=== PATIENT | male | born 1940 | race Caucasian/White ===

== ENCOUNTER → 2016-06-20 12:35 | Outpatient (CLI) | payer MEDICARE, OTHER ==
[2012-01-23 22:39] VITALS: BMI 25.3
== END | disposition home or self-care (01) ==
LOC: D.US 12:35
DX: I65.23 Occlusion and stenosis of bilateral carotid arteries (principal)

== ENCOUNTER 2017-03-06 08:56 | Outpatient (CLI) | payer MEDICARE, OTHER ==
--- NOTE | ~2017-03-06 | HEMODYNAMI ---
PATIENT:TASHA DE LA CRUZ MEDICAL RECORD: [id number] : 36 LOCATION:D.CAT ADMISSION DATE: 03/06/17 Generatedon:03/06/201711:33 Patient name: TASHA DE LA CRUZ Patient #: [id number] SSN: : 1940 Date of study: 03/06/2017 Page: Of Hemodynamic Procedure Report Patient Data Patient Demographics Procedure consent was obtained First Name: TASHA Gender: Male Last Name: DOROTHY : 1940 Middle Initial: R Age: 76 year(s) Patient #: [id number] Race: Unknown Additional ID: [id number] Contact details Address: [address] [place] [address] State: [place] City: [place] Zip code: [address] Past Medical History Allergies Allergen Reaction Date Comments Reported Other allergy 03/06/2017 HYDROCODONE Admission Admission Data Admission Date: 03/06/2017 Admission Time: 8:56 Procedure Procedure Types Cath Procedure Diagnostic Procedure LHC Coronaries only PCI Procedure Coronary Stent Initial x2 Miscellaneous Procedures Moderate Sedation up to 30 minutes Procedure Description Procedure Date Procedure Date: 03/06/2017 Procedure Start Time: 11:04 Procedure End Time: 11:33 Procedure Staff Name Function Hudson Kumar MD Performing Physician Marcio Fuentes RT Scrub Tavo Magana RN Nurse Jessica Bhat RT Monitor Procedure Data Cath Procedure Fluoroscopy Diagnostic fluoroscopy Total fluoroscopy Time: 800 time: 800 min min Diagnostic fluoroscopy Total fluoroscopy dose: dose: 10.8 mGy 10.8 mGy Contrast Material Contrast Material Type Amount (ml) Isovue 300 118 Entry Location Entry Primary Successful Side Size Upsize Upsize Entry Closure Succes sful Closure Location (Fr) 1 (Fr) 2 (Fr) Remarks Device Remarks Femoral Right 7 Fr Exoseal artery Short Estimated blood loss: 10 ml Procedure Complications No complications Procedure Medications Medication Administration Route Dosage 0.9% NaCl I.V. 100 ml/hr Oxygen NC 2 l/min Heparin Flush Bag added to field 2 bags (1000units/500ml NS) Lidocaine 2% added to field 20 Versed I.V. 1 mg Fentanyl I.V. 25 mcg Fentanyl I.V. 25 mcg Heparin Bolus I.V. 4000 units Fentanyl I.V. 50 mcg Hemodynamics Rest Heart Rate: 74 (bpm) Snapshots Pre Cath Intra NCS Post Cath Vital Signs Time Heart Resp SPO2 etCO2 [id number] NIBP (mmHg) Rhythm Pain Sedation Rate (ipm) (%) (mmHg) (mmHg) Status Level (bpm) 10:52:29 65 16 100 0 0 157/75(133) NSR 0 (11) 10(A) , No pain 10:57:07 52 14 100 0 0 142/65(118) NSR 0 (11) 10(A) , No pain 11:01:50 48 14 100 0 0 114/54(93) NSR 0 (11) 10(A) , No pain 11:06:24 48 15 100 0 0 116/59(90) NSR 0 (11) 10(A) , No pain 11:11:01 49 19 99 0 0 109/50(85) NSR 0 (11) 10(A) , No pain 11:15:35 50 15 100 0 0 105/51(82) NSR 0 (11) 9(A) , No pain 11:20:08 46 14 100 0 0 106/54(91) NSR 0 (11) 9(A) , No pain 11:24:42 45 13 100 0 0 118/54(93) NSR 0 (11) 9(A) , No pain 11:29:17 49 10 100 0 0 127/62(100) NSR 0 (11) 10(A) , No pain Medications Time Medication Route Dose Verified Delivered Reason Notes Effectiveness by by 10:53:43 0.9% NaCl I.V. 100 Tavo Tavo Per physician ml/hr Izzy Magana RN RN 10:53:56 Oxygen NC 2 Tavo Tavo Per physician l/min Izzy Magana RN RN 10:54:40 Heparin Flush added 2 Tavo Tavo used for Bag to bags Izzy Magana procedure (1000units/500ml field RN RN NS) 10:54:56 Lidocaine 2% added 20ml Tavo Tavo for local to vial Lorigan Sirenaigan anesthetic field JACK RN 10:59:59 Versed I.V. 1 mg Tavo Tavo for sedation Izzy Magana RN RN 11:00:11 Fentanyl I.V. 25 Tavo Tavo for sedation mcg Izzy Magana RN RN 11:05:25 Fentanyl I.V. 25 Tavo Tavo for sedation mcg Izzy Magana RN RN 11:08:18 Heparin Bolus I.V. 4000 Tavo Tavo for units Izzy cheema RN RN 11:29:59 Fentanyl I.V. 50 Tavo Tavo for sedation mcg Izzy Magana RN tin flipper Log Time Note 10:29:29 Marcio Fuentes RT(R) sent for patient. Start room use. 10:29:30 Time tracking: Regular hours 10:29:36 Plan of Care:Hemodynamics will remain stable., Cardiac rhythm will remain stable., Comfort level will be maintained., Respiratory function will remain adequate., Patient/ family verbilizes understanding of procedure., Procedure tolerated without complication., Recovers from procedure without complications.. 10:40:49 Patient received from Pre/Post Procedure Room to CCL 1 Alert and oriented. Tansferred to table in Supine position. 10:40:50 Warm blankets applied, and kelli hugger turned on for patient comfort. 10:40:51 Correct patient and procedure confirmed by team. 10:40:52 Signed procedure consent form obtained from patient. 10:40:54 ECG and BP/O2 sat monitors applied to patient. 10:41:01 Full Disclosure recording started 10:46:01 H&P Date Dictated: 03/01/2017 Within 30 days and on chart., H&P Addendum completed by physician on day of procedure. (MUST COMPLETE FOR ALL OUTPATIENTS). 10:51:33 Vital chart was started 10:53:43 0.9% NaCl 100 ml/hr I.V. was administered by Tavo Magana RN; Per physician; 10:53:56 Oxygen 2 l/min NC was administered by Tavo Magana RN; Per physician; 10:54:40 Heparin Flush Bag (1000units/500ml NS) 2 bags added to field was administered by Tavo Magana RN; used for procedure; 10:54:55 Baseline sample Acquired. 10:54:56 Lidocaine 2% 20ml vial added to field was administered by Tavo Magana RN; for local anesthetic; 10:55:02 Rhythm: sinus bradycardia 10:55:05 Pre-procedure instructions explained to patient. 10:55:05 Pre-op teaching completed and patient verbalized understanding. 10:55:08 Family in patients room. 10:55:10 Patient NPO since Midnight. 10:55:24 Patient allergic to Other allergyHYDROCODONE 10:55:26 Is the patient allergic to Iodine/contrast media? No. 10:55:28 Is patient on blood thinner?Yes 10:55:30 ACC The patient was administered the following blood thiners within the last 24 hours: ACCPlavix 10:55:32 Patient diabetic? Yes. 10:55:38 If diabetic: On Metformin? No 10:55:42 Previous problem with sedation/anesthesia? No ? 10:55:46 Snore? No 10:55:48 Sleep apnea? No 10:55:49 Deviated septum? No 10:55:49 Opens mouth fully? Yes 10:55:50 Sticks out tongue? Yes 10:55:52 Airway obstruction? No ? 10:55:54 Dentures? No ? 10:55:57 Pre procedure: right dorsailis pedis pulse 2+ Normal; easily identifiable; not easily obliterated 10:55:58 Patient pain scale 0/10 ?. 10:56:05 IV patent on arrival in right forearm with 0.9% NaCl at [facility]. 10:56:15 Lab results completed and on chart. 10:56:18 Right groin area was prepped with chlora-prep and draped in sterile fashion 10:56:19 Alarms reviewed by R. N. 10:56:19 Sharps counted by scrub and verified by R.N. 10:57:54 Use device set Femoral PCI 10:57:55 Acist Syringe opened to sterile field. 10:57:55 Acist Hand Control opened to sterile field. 10:57:56 Bag Decanter opened to sterile field. 10:57:56 Medline Cath Pack opened to sterile field. 10:57:57 St Karl 260cm J .035 wire opened to sterile field. 10:57:58 Merit BasixCompak Inflation Kit opened to sterile field. 10:57:59 Acist Manifold opened to sterile field. 10:57:59 Tegaderm 4 x 4 opened to sterile field. 10:58:06 [place] Sci Choice PT Extra Support J 300cm .014 gu opened to sterile field. 10:58:32 Terumo 7Fr [place] Sheath opened to sterile field. 10:58:49 Final Timeout: patient, procedure, and site verified with staff and physician. All members of the team are in agreement. 10:58:56 Right groin site verified by team. 10:59:01 Physical assessment completed. ASA score P 3 - A patient with severe systemic disease as per Hudson Kumar MD. 10:59:11 Sedation plan: IV Moderate Sedation Versed, Fentanyl 10:59:59 Versed 1 mg I.V. was administered by Tavo Magana RN; for sedation; 11:00:11 Fentanyl 25 mcg I.V. was administered by Tavo Magana RN; for sedation; 11:03:18 Procedure started. 11:04:42 Local anesthetic to right femoral artery with Lidocaine 2% by Hudson Kumar MD.INITIAL ACCESS ONLY 11:05:25 Fentanyl 25 mcg I.V. was administered by Tavo Magana RN; for sedation; 11:05:57 A 7 Fr Short sheath was inserted into the Right Femoral artery 11:06:06 Qudinitronic Launcher 7Fr EBU 3.5 SH guide catheter opened to sterile field. 11:06:19 7 Fr EBU 3.5 SH guide catheter was inserted over the wire 11:08:18 Heparin Bolus 4000 units I.V. was administered by Tavo Magana RN; for anticoagulation; 11:09:28 CHOICE PT ES wire advanced. 11:10:24 Inflation number: 1 A [place] Sci [place] 1.5 X 20 balloon was prepped and advanced across the Prox CX, then inflated to 21 FLORECITA for 0:13 (min:sec). 11:10:56 Balloon removed over the wire. 11:13:10 Inflation number: 2 A Euphora 2.0 x 15 Balloon was prepped and advanced across the Prox CX, then inflated to 3 FLORECITA for 0:13 (min:sec). 11:13:59 Balloon removed over the wire. 11:17:22 The [place] OTW 2.25 x 12 stent was advanced then removed because of failure to cross lesion 11:18:18 Inflation number: 3 A Euphora 2.5 x 12 Balloon was prepped and advanced across the Prox CX, then inflated to 17 FLORECITA for 0:09 (min:sec). 11:18:28 Balloon removed over the wire. 11::19 Inflation Number: 4 A Juan OTW 2.25 x 12 stent was prepped and advanced across the Prox CX. The stent was deployed at 17 FLORECITA for 0:07 (min:sec). 11:21:43 Wire redirected to LAD. 11::27 Inflation number: 1 The stent balloon was then re-inflated across the Prox LAD to 19 FLORECITA for 0:06 (min:sec). 11::52 Stent catheter was removed intact over wire. 11:25:33 Inflation Number: 2 A [place] OTW 2.5 x 12 stent was prepped and advanced across the Prox LAD. The stent was deployed at 11 FLORECITA for 0:06 (min:sec). 11:26:01 Stent catheter was removed intact over wire. 11:26:01 Wire removed. 11:26:02 Guide catheter removed. 11::28 6 Fr HS II SH guide catheter was inserted over the wire 11::33 RCA angiography performed. 11::55 Guide catheter removed. 11:28:05 Sheath removed intact; hemostasis achieved with Exoseal to the Right Femoral artery. 11:28:18 Procedure ended.(Physican Out) ::28 Fluoroscopy time 800.00 minutes. ::32 Flurop Dose total: 10.8 ::32 Fluoroscopy dose: 10.8 mGy 11::38 Contrast amount:Isovue 300 118ml. 11::42 Sharps counted by scrub and verified by R.N. 11::44 Insertion/operative site no bleeding no hematoma. 11::47 Post-op/insertion site Right Femoral artery dressed using a 4 x 4 and Tegaderm. 11:28:51 Post right femoral artery:stable, clean and dry 11::52 Post Procedure Pulses reassessed and unchanged 11::56 Post-procedure physical assessment completed. ASA score P 2 - A patient with mild systemic disease as per Hudson Kumar MD. 11:29:00 Post procedure rhythm: unchanged. 11:29:02 Estimated blood loss: 10 ml 11:29:04 Post procedure instruction explained to patient.Patient verbalizes understanding. 11:29:04 Patient needs reinforcement of post procedure teaching. ::22 Procedure type changed to Cath procedure, Diagnostic procedure, LHC, Coronaries only, PCI procedure, Coronary Stent Initial x2, Miscellaneous Procedures, Moderate Sedation up to 30 minutes 11:29:29 Procedure Complication : No complications 11:29:31 See physician's report for complete and final results. 11:29:59 Fentanyl 50 mcg I.V. was administered by Tavo Magana RN; for sedation; 11:31:03 Cordis 7Fr Exoseal opened to sterile field. 11:32:00 Medtronic Launcher 6Fr HS II SH guide catheter opened to sterile field. 11:32:55 Procedure and supply charges have been captured, reviewed, submitted and are correct. 11:33:04 Vital chart was stopped 11:33:07 Report given to Pre/Post Procedure Room. 11:33:17 Patient transfered to Pre/Post Procedure Room with Stretcher. 11:33:23 Procedure ended. 11:33:23 Full Disclosure recording stopped 11:33:29 End room use (Document Last) Intervention Summary Intervention Notes Time ActionType Lesion and Equipment Action# Pressure Duration Attributes Used 11:10:24 Inflate Prox CX [place] 1 21 00:13 balloon Sci [place]lin 1.5 X 20 balloon 11:13:10 Inflate Prox CX Euphora 2 3 00:13 balloon 2.0 x 15 Balloon 11:17:22 Discard [place] OTW Stent 2.25 x 12 stent 11:18:18 Inflate Prox CX Euphora 3 17 00:10 balloon 2.5 x 12 Balloon 11:21:19 Place stent Prox CX Juan OTW 4 17 00:07 2.25 x 12 stent 11:22:27 Reinflate Prox LAD [place] OTW 1 19 00:06 stent 2.25 x 12 balloon stent 11:25:33 Place stent Prox LAD Juan OTW 2 11 00:06 2.5 x 12 stent Device Usage Item Name Manufacture Quantity Catalog Number Hospital Part Current Mini mal Lot# / Charge Number Stock Stock Serial# Code Acist Acist 1 [id number] 967150 083623 067202 20 Syringe Medical Systems Inc Acist Hand Acist 1 50329 843081 411984 116097 5 Control Medical Systems Inc Bag Microtek 1 2001S 058956 50488 678497 5 SCHEDit. Medline Cardinal 1 [id number] 975658 [address] Karl St Karl 1 833797 357996 648225 167671 30 260cm J .035 wire Merit Merit 1 [id number] 677532 463085 215083 15 LUVHAN Medical Inflation Kit Acist Acist 1 13579 075337 253625 794261 5 Wanelo Medical [employer] Inc Tegaderm 4 3M 1 1626W 250140 882400 387633 5 x 4 [place] Sci Hollsopple 1 [id number] 698152 027343 026193 5 Choice PT Scientific Extra Support J 300cm .014 gu Terumo 7Fr Terumo 1 [id number] 938369 282904 962239 5 [place] Sheath Medtronic Medtronic 1 [id number] 177797 557835 433566 0 Launcher 7Fr EBU 3.5 SH guide catheter [place] Sci Hollsopple 1 [id number] 168975 356467 741005 1 [id number] Wavesat 1.5 X 20 balloon Euphora 2.0 Medtronic 1 [id number] 339455 091210 564716 5 [id number] x 15 Balloon Juan OTW Medtronic 1 [id number] 544998 93895 791012 5 [id number] 2.25 x 12 stent Euphora 2.5 Medtronic 1 [id number] 650358 965097 062000 5 [id number] x 12 Balloon [place] OTW Medtronic 1 [id number] 117425 21177 488074 5 [id number] 2.5 x 12 stent Cordis 7Fr Cardinal 1 [id number] 209205 643076 602807 5 [facility] Medtronic Medtronic 1 [id number] 316090 96464 125558 1 Launcher 6Fr HS II SH guide catheter Signature Audit [place] Stage Time Signature Unsigned Intra-Procedure 03/06/2017 Jessica 11:33:39 AM Counts RT(R) Signatures Monitor : Jessica Signature : Counts RT Date : Time : [place] [address] [facility] [place] [address]
[2017-03-06] MEDS ORDERED: MEGACE40 MG PO (09:15)
[2017-03-06] MEDS ORDERED: CORDARONE200 MG PO (09:15)
[2017-03-06] MEDS ORDERED: COUMADIN3 MG PO (09:15)
[2017-03-06] MEDS ORDERED: RENVELA800 MG PO (09:16)
[2017-03-06] MEDS ORDERED: DEXILANT60 MG PO (09:16)
[2017-03-06] MEDS ORDERED: TOPROL XL25 MG PO (09:16)
[2017-03-06] MEDS ORDERED: TYLENOL W/CODEI1 TAB PO (09:17)
[2017-03-06] MEDS ORDERED: NEPHRO-VITE RX1 TAB PO (09:17)
[2017-03-06] MEDS ORDERED: ZOCOR20 MG PO (09:18)
[2017-03-06] MEDS ORDERED: PLAVIX75 MG PO (09:19)
[2017-03-06 09:26] VITALS: BP 145/58; BMI 19.2
[2017-03-06 10:06] LABS: BASOPHILS 0.2 % (0-2); EOSINOPHILS 2.2 % (0-7); HEMATOCRIT 34.4 % (42.0-54.0); HEMOGLOBIN 11.1 g/dL (13.5-17.5); IMMATURE GRANULOCYTES 0.2 % (0-5); LYMPHOCYTES 20.2 % (15-50); MCH 31.9 pg (26.0-34.0); MCHC 32.3 g/dL (31.0-37.0); MCV 98.9 fL (80.0-100.0); MEAN PLATELET VOLUME 9.7 fL (7.4-10.4); MONOCYTES 4.4 % (2-11); NEUTROPHILS 72.8 % (40-80); PLATELET COUNT 147 10x3/uL (130-400); RBC 3.48 10x6/uL (4.20-6.10); RDW 15.5 % (11.5-14.5); WBC 8.7 10x3/uL (4.8-10.8)
[2017-03-06 10:11] LABS: ANION GAP 13.3 mmol/L (8-16); CALCIUM 9.3 mg/dL (8.5-10.1); CARBON DIOXIDE 30.6 mmol/L (21.0-32.0); CREATININE - SERUM 6.4 mg/dL (0.6-1.3); POTASSIUM - SERUM 3.9 mmol/L (3.5-5.1)
[2017-03-06 11:00] LABS: INR 1.15 (0.85-1.17); PROTIME 14.5 SECONDS (11.6-15.0)
--- NOTE | 2017-03-06 11:45 | NUR ---
1145 RECIEVED TO ROOM VIA STRETCHER FROM TEMPLATE CLERK WITH REPORTS OF 2 STENTS ONE TO THE CIRC AND ONE TO THE LAD. 7 FR EXOSEAL R/GROIN CDI NO BLEEDING NO HEMATOMA NOTED. INSTRUCTED PATIENT TO KEEP HEAD FLAT ON PILLOW WITH RLE STRAIGHT. 1200 VSS WITH CHEST PAIN DENIED. DR HANSON AT BEDSIDE TALKING TO PATIENT AND . PATIENT WILL RETURN ON MONDAY FOR INTERVENTION TO THE RCA. 1215 RESTING QUIETLY NO DISTRESS NOTED VSS
--- NOTE | 2017-03-06 12:41 | NUR ---
R/GROIN CDI NO BLEEDING NO HEMATOMA NOTED PULSES PALPABLE. VSS WITH CHEST PAIN DENIED
--- NOTE | 2017-03-06 12:47 | NUR ---
TR BAND REMOVED WITH DRESSING APPLIED NO BLEEDING NO HEMATOMA NOTED. VERBAL AND WRITTEN DISCHARGE GONE OVER WITH PATIENT AND BOTH VERBALIZED UNDERSTANDING. LEFT VIA WC TO PARKING FOR TRANSPORT HOME WITH CHEST PAIN DENIED
--- NOTE | 2017-03-06 12:58 | NUR ---
VSS WITH CHEST PAIN DENIED SANDWICH AND JUICE TO BEDSIDE WITH TO ASSIST. NO DISTRESS NOTED. 7 FR EXOSEAL R/GROIN CDI
--- NOTE | 2017-03-06 13:19 | NUR ---
RESTING QUIETLY WITH FAMILY AT SIDE 7 FR EXOSEAL R/GROIN CDI NO BLEEDING NO HEMATOMA NOTED VSS
--- NOTE | 2017-03-06 13:49 | NUR ---
NO CHANGE IN ASSESSMENT PATIENT CONTINUES TO SLEEP WITH NO DISTRESS
--- NOTE | 2017-03-06 14:22 | NUR ---
7 FR EXOSEAL R/GROIN CDI NO BLEEDING NO HEMATOMA NOTED. CHEST PAIN IS DENIED. VSS AND FAMILY AT SIDE
--- NOTE | 2017-03-06 15:04 | NUR ---
REPOSITIONED TO SITTING WITH HOB UP 30 DEGREES. 7 FR EXOSEAL R/GROIN REMAINS CDI NO HEMATOMA NOTED. CHEST PAIN IS DENIED
--- NOTE | 2017-03-06 15:18 | NUR ---
PIV REMOVED WITH DRESSING APPLIED VERBAL DISCHARGE INSTRUCTIONS GONE OVER WITH AND PATIENT UP TO GET DRESSED WITH 7 FR EXOSEAL R/GROIN CDI NO BLEEDING NO HEMATOMA NOTED.
--- NOTE | 2017-03-06 15:44 | NUR ---
VERBAL AND WRITTEN DISCHARGE GONE OVER WITH PATIENT AND . 7 FR EXOSEAL R/GROIN CDI NO BLEEDING NO HEMATOMA NOTED. PATIENT TRANSPORTED VIA WC TO PARKING FOR TO DRIVE HOME NO DISTRESS NO CHEST PAIN
--- NOTE | 2017-03-24 16:56 | OP ---
PATIENT NAME: TASHA DE LA CRUZ MEDICAL RECORD: [id number] :36 LOCATION:D.CAT ADMISSION DATE: SURGEON: CARLOTA HANSON MD DATE OF OPERATION: 03/06/2017 PROCEDURES: 1. PTCA stent to LAD. 2. PTCA stent to the left circumflex. 3. Selective coronary angiography. INDICATION: Angina and coronary artery disease. PROCEDURE IN DETAIL: After informed consent was obtained and after detailed explanation of risks, benefits as well as alternative therapies, the patient elected to proceed with angiogram and angioplasty. The right femoral area was prepped and draped in normal sterile fashion. The right femoral artery was cannulated via modified Seldinger technique with placement of a 7-Kyrgyz sheath. All catheters were exchanged through this sheath. FINDINGS: The left anterior descending has 80% stenosis at the proximal aspect of the left circumflex with a 99% stenosis. The left circumflex was addressed with a 2.25 x 12 mm [place], the LAD with a 2.5 x 12 mm Juan. Result was 0% residual stenosis. OVERALL IMPRESSION: Successful percutaneous transluminal coronary angioplasty stent of the left anterior descending and left circumflex going from 80-99% initial stenosis to 0% residual stenosis. TRANSINT:[id number] Voice Confirmation ID: [id number] DOCUMENT ID: [id number] CARLOTA HANSON MD at 1656 CC: [id number] DICTATION DATE: 03/06/17 1132 TRIMMING DEPARTMENT BLOCKER: 03/06/17 1258 DEP CLI 03/06/17 [place] [id number] [place] [address]
[2017-07-07] MEDS ORDERED: LANOXIN125 MCG PO (08:49)
[2017-07-07] MEDS ORDERED: RENA-VITE TABL0.8 MG PO (08:50)
[2017-07-07] MEDS ORDERED: RENVELA800 MG PO (08:50)
[2017-07-07] MEDS ORDERED: BAYER CHEWABLE81 MG PO (08:51)
[2017-07-07] MEDS ORDERED: SENSIPAR30 MG PO (08:52)
[2017-07-07] MEDS ORDERED: PLAVIX75 MG PO (10:51)
== END 2017-03-06 15:46 ==
LOC: D.CATH 08:56
PROVIDERS: Internal Medicine Interventional Cardiology
DX: I25.119 Atherosclerotic heart disease of native coronary artery with unspecified angina pectoris (principal); Z01.812 Encounter for preprocedural laboratory examination

== ENCOUNTER → 2017-03-10 08:57 | Outpatient (CLI) | payer MEDICARE, OTHER ==
--- NOTE | ~2017-03-10 | HEMODYNAMI ---
PATIENT:TASHA DE LA CRUZ MEDICAL RECORD: [id number] : 36 LOCATION:D.CAT ADMISSION DATE: 03/10/17 Generatedon:03/10/201713:31 Patient name: TASHA DE LA CRUZ Patient #: [id number] SSN: : 1940 Date of study: 03/10/2017 Page: Of Hemodynamic Procedure Report Patient Data Patient Demographics Procedure consent was obtained First Name: TASHA Gender: Male Last Name: DOROTHY : 1940 [facility] Initial: R Age: 76 year(s) Patient #: [id number] Race: Additional ID: [id number] Contact details [address]: [address] [place] [address] State: [place] City: [place] Zip code: [address] Past Medical History Allergies Allergen Reaction Date Comments Reported Other allergy 03/06/2017 HYDROCODONE Other allergy 03/10/2017 Hydrocodone Admission Admission Data Admission Date: 03/10/2017 Admission Time: 8:57 Lab Results Lab Result Date: 03/10/2017 Lab Result Time: 0:00 Biochemistry Name Units Result Min Max BUN mg/dl 25 --(----)-* 7 18 Creatinine mg/dl 4.9 --(----)-* 0.6 1.3 CBC Name Units Result Min Max Hemoglobin g/dl 11.2 *-(----)-- 13.5 17.5 Procedure Procedure Types Cath Procedure PCI Procedure Coronary Atherectomy Atherectomy w/Stent Coronary Initial Miscellaneous Procedures Moderate Sedation up to 30 minutes Moderate Sedation up to 45 minutes Procedure Description Procedure Date Procedure Date: 03/10/2017 Procedure Start Time: 12:28 Procedure End Time: 13:30 Procedure Staff Name Function Mikel Jasso RT Scrub Hudson Kumar MD Performing Physician Mar Goyal RT Scrub Giovani French RT Monitor Samiar Marin RN Nurse Procedure Data Cath Procedure Fluoroscopy Diagnostic fluoroscopy Total fluoroscopy Time: time: 25.7 min 25.7 min Diagnostic fluoroscopy Total fluoroscopy dose: dose: 1131 mGy 1131 mGy Contrast Material Contrast Material Type Amount (ml) Isovue 300 147 Entry Location Entry Primary Successful Side Size Upsize Upsize Entry Closure Membreno ccessful Closure Location (Fr) 1 (Fr) 2 (Fr) Remarks Device Remarks Femoral Right 7 Fr Exoseal artery Short Femoral Right 7 Fr Manual vein Short Compression Estimated blood loss: 10 ml Procedure Complications No complications Procedure Medications Medication Administration Route Dosage Oxygen NC 2 l/min Lidocaine 2% added to field 20 Heparin Flush Bag added to field 2 bags (1000units/500ml NS) 0.9% NaCl I.V. 50 ml/hr Versed I.V. 1 mg Fentanyl I.V. 50 mcg Versed I.V. 1 mg Fentanyl I.V. 50 mcg Heparin Bolus I.V. 5000 units 0.9% NaCl I.V. bolus 500 ml Fentanyl I.V. 50 mcg Fentanyl I.V. 50 mcg Heparin Bolus I.V. 3000 units Hemodynamics Rest HGB: 11.2 (g/dl) Heart Rate: 48 (bpm) Snapshots Pre Cath Intra NCS Post Cath Vital Signs Time Heart Resp SPO2 etCO2 NIBP (mmHg) Rhythm Pain Sedation Rate (ipm) (%) (mmHg) Status Level (bpm) 12:20:03 52 25 100 0 128/62(105) NSR 0 (11) 10(A) , No pain 12:24:45 49 18 100 0 126/56(103) NSR 0 (11) 10(A) , No pain 12:29:21 48 16 100 0 107/51(77) NSR 0 (11) 10(A) , No pain 12:33:58 53 17 99 0 99/50(78) NSR 0 (11) 9(A) , No pain 12:38:35 63 17 100 0 85/42(61) NSR 0 (11) 9(A) , No pain 12:43:07 68 15 99 0 87/49(68) NSR 0 (11) 9(A) , No pain 12:47:39 59 16 100 0 96/50(72) NSR 0 (11) 9(A) , No pain 12:52:12 80 15 100 0 107/61(84) NSR 0 (11) 9(A) , No pain 12:56:46 70 14 100 0 115/61(93) NSR 0 (11) 9(A) , No pain 13:01:23 70 14 100 0 119/64(93) NSR 0 (11) 9(A) , No pain 13:06:01 70 14 100 0 118/63(95) NSR 0 (11) 9(A) , No pain 13:10:38 70 16 100 0 119/67(95) NSR 0 (11) 10(A) , No pain 13:15:17 68 16 100 0 127/60(104) NSR 0 (11) 10(A) , No pain 13:19:57 56 14 100 0 123/60(98) NSR 0 (11) 10(A) , No pain 13:24:38 56 14 100 0 123/55(100) NSR 0 (11) 10(A) , No pain 13:29:16 49 15 100 0 126/55(105) NSR 0 (11) 10(A) , No pain Medications Time Medication Route Dose Verified Delivered Reason Notes Effectiveness by by 12:17:47 Oxygen NC 2 Hudson Hudson used for l/min José Kumar MD procedure 12:24:31 Lidocaine 2% added 20ml Hudson Hudson for local to vial José Kumar MD anesthetic field 12:24:39 Heparin Flush added 2 Hudson Hudson used for Bag to bags José Kumar MD procedure (1000units/500ml field NS) 12:25:25 0.9% NaCl I.V. 50 Hudson Buffie Per physician ml/hr José Marin RN 12:25:48 Versed I.V. 1 mg Hudson Buffie for sedation José Marin RN 12:25:55 Fentanyl I.V. 50 Hudson Buffie for sedation mcg José Marin RN 12:29:35 Versed I.V. 1 mg Hudson Buffie for sedation José Marin RN 12:29:39 Fentanyl I.V. 50 Hudson Buffie for sedation mcg José Marin RN 12:36:18 Heparin Bolus I.V. 5000 Hudson Buffie for verifi ed units José Marin RN anticoagulation with dr kumar 12:41:01 0.9% NaCl I.V. 500 Hudson Buffie Per physician bolus ml José Marin RN 12:54:33 Fentanyl I.V. 50 Hudson Hogan for sedation mcg José Marin RN 13:03:29 Fentanyl I.V. 50 Hudson Hogan for sedation mcg José Marin RN 13:05:06 Heparin Bolus I.V. 3000 Hudson Hogan for verifi ed units José Marin RN anticoagulation with dr kumar Procedure Log Time Note 11:43:46 Time tracking: Regular hours 11:43:46 Mikel Jasso RT(R) sent for patient. Start room use. 11:43:51 Plan of Care:Hemodynamics will remain stable., Cardiac rhythm will remain stable., Comfort level will be maintained., Respiratory function will remain adequate., Patient/ family verbilizes understanding of procedure., Procedure tolerated without complication., Recovers from procedure without complications.. 12:00:32 Informed consent obtained and on chart 12:00:38 PCI Cath Status : Elective 12:09:37 Patient received from Pre/Post Procedure Room to CCL 1 Alert and oriented. Tansferred to table in Supine position. 12:09:42 Warm blankets applied, and kelli hugger turned on for patient comfort. 12:09:43 Correct patient and procedure confirmed by team. 12:09:46 ECG and BP/O2 sat monitors applied to patient. 12:13:20 H&P Date Dictated: 03/10/2017 New H&P dictated by physician.. 12:13:25 Pre-procedure instructions explained to patient. 12:13:26 Pre-op teaching completed and patient verbalized understanding. 12:13:29 Family in waiting room. 12:13:37 Patient NPO since Midnight. 12:14:17 Patient allergic to Other allergyHydrocodone 12:14:30 ----Pre-sedation anethsthesia assessment.---- 12:14:33 Previous problem with sedation/anesthesia? No ? 12:15:53 Lab Result : BUN 25 mg/dl 12:15:53 Lab Result : Hemoglobin 11.2 g/dl 12:15:53 Lab Result : Creatinine 4.9 mg/dl 12:16:17 IV patent on arrival in right wrist with 0.9% NaCl at [facility] [employer] [facility]. 12:16:19 Snore? Yes 12:16:21 Sleep apnea? No 12:16:22 Deviated septum? No 12:16:23 Opens mouth fully? Yes 12:16:24 Sticks out tongue? Yes 12:16:27 Airway obstruction? No ? 12:16:43 Dentures? Yes IN TIGHT 12:16:49 Is the patient allergic to Iodine/contrast media? No. 12:16:51 Is patient on blood thinner?Yes 12:16:55 ACC The patient was administered the following blood thiners within the last 24 hours: ACCPlavix 12:17:05 Patient diabetic? Yes. 12:17:47 Oxygen 2 l/min NC was administered by Hudson Kumar MD; used for procedure; 12:18:10 Pre procedure: right dorsailis pedis pulse Doppler 12:18:16 Patient pain scale 0/10 ?. 12:18:23 Lab results completed and on chart. 12:18:31 If diabetic: On Metformin? No 12:18:50 Right groin area was prepped with chlora-prep and draped in sterile fashion 12:18:54 Alarms reviewed by R. N. 12:18:54 Sharps counted by scrub and verified by R.N. 12:19:00 Vital chart was started 12:19:03 Baseline sample Acquired. 12:19:14 Rhythm: sinus bradycardia 12:19:25 Full Disclosure recording started 12:19:49 Use device set Femoral PCI 12:19:50 Acist Syringe opened to sterile field. 12:19:52 Acist Hand Control opened to sterile field. 12:19:52 Bag Decanter opened to sterile field. 12:19:53 Medline Cath Pack opened to sterile field. 12:19:56 St Karl 260cm J .035 wire opened to sterile field. 12:19:57 Merit BasixCompak Inflation Kit opened to sterile field. 12:19:58 Acist Manifold opened to sterile field. 12:19:59 Tegaderm 4 x 4 opened to sterile field. 12:20:13 Terumo 7Fr Spur Sheath opened to sterile field. 12:20:14 Terumo 7Fr Spur Sheath opened to sterile field. 12:20:52 5Fr J Tip Temporary Pacing Catheter opened to sterile field. 12:23:22 Physician arrived 12:23:22 --------ALL STOP TIME OUT------ 12::23 Final Timeout: patient, procedure, and site verified with staff and physician. All members of the team are in agreement. 12:23:30 Right groin site verified by team. 12::37 Physical assessment completed. ASA score P 2 - A patient with mild systemic disease as per Hudson Kumar MD. 12::42 Sedation plan: IV Moderate Sedation Versed, Fentanyl 12::31 Lidocaine 2% 20ml vial added to field was administered by Hudson Kumar MD; for local anesthetic; 12::39 Heparin Flush Bag (1000units/500ml NS) 2 bags added to field was administered by Hudson Kumar MD; used for procedure; 12:24:56 MedFedCyber Launcher 7Fr HS II SH guide catheter opened to sterile field. 12::25 0.9% NaCl 50 ml/hr I.V. was administered by Samira Marin RN; Per physician; 12::48 Versed 1 mg I.V. was administered by Samira Marin RN; for sedation; 12::55 Fentanyl 50 mcg I.V. was administered by Samira Marin RN; for sedation; 12:27:54 Procedure started. 12:28:00 Local anesthetic to right femoral artery with Lidocaine 2% by Hudson Kumar MD.INITIAL ACCESS ONLY 12::31 A 7 Fr Short sheath was inserted into the Right Femoral artery 12::35 Versed 1 mg I.V. was administered by Samira Marin RN; for sedation; 12::39 Fentanyl 50 mcg I.V. was administered by Samira Marin RN; for sedation; 12:31:12 A 7 Fr Short sheath was inserted into the Right Femoral vein 12::55 Temporary pacer inserted 12:35:25 Temporary pacer turned on with the following settings: Rate 70, MA 5, Mode: Demand. 12:36:12 7 Fr HS 2 SH guide catheter was inserted over the wire 12:36:18 Heparin Bolus 5000 units I.V. was administered by Samira Marin RN; for anticoagulation; verified with dr kumar 12:36:40 DIANE .014 335 CM guide wire opened to sterile field. 12:37:21 VIPER wire advanced. 12:39:01 Diamondback solution initiated IA via Diamondback device per MD: 0.9% NS 1000ml, Viperslide 20ml, Verapamil 5mg, Nitroglycerin 5mg. 12:39:33 Wire advanced across lesion. 12:40:12 Zero performed for pressure channel P1 12:40:15 Zero performed for pressure channel P1 12:40:18 Zero performed for pressure channel P1 12:41:01 0.9% NaCl 500 ml I.V. bolus was administered by Samira Marin RN; Per physician; 12:41:21 Diamondback 360 1.25 SOLID Atherectomy catheter opened to sterile field. 12:43:49 1.25 WALT BACK BERT ADVANCED 12:44:22 PASS MADE 12:45:07 PASS MADE 12:48:20 PASS MADE 12:49:43 PASS MADE 12:52:54 DIAMONDBACK SYSTEM REMOVED 12:54:33 Fentanyl 50 mcg I.V. was administered by Samira Marin RN; for sedation; 12:54:47 [place] Sci Choice PT Extra Support J 300cm .014 gu opened to sterile field. 12:56:44 The [place] Sci [place] 3.0 X 20 balloon was advanced and then removed because of failure to cross lesion 12:59:07 BALLOON 1.5 ADVANCED VIPER WIRE REMOVED, CHOICE PT SUPPORT ADVANCED 12:59:34 Inflation number: 1 A [place] Sci [place] 1.5 X 20 balloon was prepped and advanced across the Dist RCA, then inflated to 19 FLORECITA for 0:10 (min:sec). 12:59:51 MULTIPLE INFLATIONS MADE 13:01:17 Balloon removed over the wire. 13:02:13 Inflation number: 2 A [place] Sci [place] 3.0 X 20 balloon was prepped and advanced across the Dist RCA, then inflated to 17 FLORECITA for 0:10 (min:sec). 13:02:44 Inflation number: 1 The [place] Sci [place] 3.0 X 20 balloon was reinflated across the Prox RCA, to 17 FLORECITA for 0:10 (min:sec). 13:03:29 Fentanyl 50 mcg I.V. was administered by Samira Marin RN; for sedation; 13:03:47 Balloon removed over the wire. 13:05:06 Heparin Bolus 3000 units I.V. was administered by Samira Marin RN; for anticoagulation; verified with dr kumar 13:06:54 Inflation Number: 3 A Juan OTW 2.5 x 18 stent was prepped and advanced across the Dist RCA. The stent was deployed at 23 FLORECITA for 0:10 (min:sec). 13:08:06 Stent catheter was removed intact over wire. 13:10:50 Inflation Number: 2 A Juan OTW 3.0 x 34 stent was prepped and advanced across the Prox RCA. The stent was deployed at 21 FLORECITA for 0:10 (min:sec). 13:10:54 Stent catheter was removed intact over wire. 13:12:29 Inflation Number: 3 A [place] OTW 3.0 x 22 stent was prepped and advanced across the Prox RCA. The stent was deployed at 21 FLORECITA for 0:10 (min:sec). 13:14:10 Stent catheter was removed intact over wire. 13:14:27 Temporary pacer turn off 13:14:29 Temporary pacer removed 13:14:50 Wire removed. 13:14:52 Guide catheter removed. 13:15:53 Cordis 7Fr Exoseal opened to sterile field. 13:16:57 Sheath removed intact; hemostasis achieved with Exoseal to the Right Femoral artery. 13:17:27 Sheath removed intact; hemostasis achieved with Manual Compression to the Right Femoral vein. 13:17:44 Procedure ended.(Physican Out) 13:18:26 Procedure type changed to Cath procedure, PCI procedure, Coronary Atherectomy, Atherectomy w/Stent Coronary Initial, Miscellaneous Procedures, Moderate Sedation up to 30 minutes, Moderate Sedation up to 45 minutes 13:22:51 Fluoroscopy time 25.70 minutes. 13:22:58 Fluoroscopy dose: 1131 mGy 13:22:58 Flurop Dose total: 1131 13:23:13 Contrast amount:Isovue 300 147ml. 13:23:14 Sharps counted by scrub and verified by R.N. 13:25:14 Insertion/operative site no bleeding no hematoma. 13:25:17 Post-op/insertion site Right Femoral artery dressed using a 4 x 4 and Tegaderm. 13:25:19 Post Procedure Pulses reassessed and unchanged 13:25:26 Post-procedure physical assessment completed. ASA score P 2 - A patient with mild systemic disease as per Hudson Kumar MD. 13:25:31 Post procedure rhythm: unchanged. 13:25:34 Estimated blood loss: 10 ml 13:25:37 Post procedure instruction explained to patient.Patient verbalizes understanding. 13:25:38 Patient needs reinforcement of post procedure teaching. 13:26:19 Procedure Complication : No complications 13:28:38 Procedure and supply charges have been captured, reviewed, submitted and are correct. 13:30:47 Vital chart was stopped 13:30:47 See physician's report for complete and final results. 13:30:52 Report given to Pre/Post Procedure Room. 13:30:55 Patient transfered to Pre/Post Procedure Room with Stretcher. 13:30:58 Procedure ended. 13:30:58 Full Disclosure recording stopped 13:31:02 End room use (Document Last) Intervention Summary Intervention Notes Time ActionType Lesion and Equipment Action# Pressure Duration Attributes Used 12:56:44 Discard [place] Balloon Sci [place] 3.0 X 20 balloon 12:59:34 Inflate Dist RCA [place] 1 19 00:10 balloon Sci [place] 1.5 X 20 balloon 13:02:13 Inflate Dist RCA [place] 2 17 00:10 balloon Sci [place] 3.0 X 20 balloon 13:02:44 Reinflate Prox RCA [place] 1 17 00:10 balloon Sci [place] 3.0 X 20 balloon 13:06:54 Place stent Dist RCA [place] OTW 3 23 00:10 2.5 x 18 stent 13:10:50 Place stent Prox RCA [place] OTW 2 21 00:10 3.0 x 34 stent 13:12:29 Place stent Prox RCA Juan OTW 3 21 00:10 3.0 x 22 stent Device Usage Item Name Manufacture Quantity Catalog Number Hospital Part Current Minimal Lot# / Charge Number Stock Stock Serial# Code Acist Acist Medical 1 19385 [id number] 212884 921024 20 Syringe Systems Inc Acist [facility] Acist Medical 1 57702 659687 919148 734178 5 Control Systems Inc Bag Microtek 1 2002S 724123 46740 206970 5 Doutíssima [employer] Inc. Medline Cardinal 1 [id number] 994133 25095 863116 [address] [facility] [address] [facility] [address] Karl 1 881720 928564 978283 747085 30 260cm J .035 wire [facility] 1 [id number] 005538 065883 524327 15 BasixCompak Inflation Kit Acist Acist Medical 1 79782 601480 988630 186794 5 Manifold Systems Inc Tegaderm 4 3M 1 1626W 940080 810040 435776 5 x 4 Terumo 7Fr Terumo 2 [id number] 796410 944601 128131 5 Spur Sheath 5Fr J Tip Chawla 1 [id number] 934300 11602 960834 2 Temporary Lifesciences Pacing Catheter Medtronic Medtronic 1 [id number] 210456 614534 005797 0 Launcher 7Fr HS II SH guide catheter VIPER .014 Cardiovascular 1 [id number] 651371 727666 5 335 CM systems guide wire Diamondback Cardiovascular 1 [id number] 015382 5 360 1.25 systems SOLID Atherectomy catheter [place] Sci [place] 1 [id number] 425106 20181127 301673 5 Choice PT Scientific Extra Support J 300cm .014 gu [place] Sci [place] 1 [id number] 710728 991698 101221 1 Expanite 3.0 X 20 balloon [place] Sci [place] 1 [id number] 762813 143401 895472 1 [place] Scientific 1.5 X 20 balloon Juan OTW Medtronic 1 [id number] 842151 58348 411075 5 [id number] 2.5 x 18 stent [place] OTW Medtronic 1 [id number] 736845 9643745 569424 5 [id number] 3.0 x 34 stent Juan OTW Medtronic 1 [id number] 757893 3070819 119549 5 [id number] 3.0 x 22 stent Cordis 7Fr [place] 1 EX700 480301 736369 896832 5 [facility] Signature Audit [place] Stage Time Signature Unsigned Intra-Procedure 03/10/2017 Mikel Jasso 1:31:20 PM RT(R) Signatures Monitor : Giovani French RT Signature : Date : Time : [facility] [address], [place] [address]
[~2017-03-10 08:57] MED LIST: BAYER CHEWABLE81 MG PO; CORDARONE200 MG PO; COUMADIN3 MG PO; DEXILANT60 MG PO; LANOXIN125 MCG PO; MEGACE40 MG PO; NEPHRO-VITE RX1 TAB PO; PLAVIX75 MG PO; RENA-VITE TABL0.8 MG PO; RENVELA800 MG PO; SENSIPAR30 MG PO; TOPROL XL25 MG PO; TYLENOL W/CODEI1 TAB PO; ZOCOR20 MG PO
[2017-03-10 10:12] VITALS: BP 133/45; BMI 19.4
[2017-03-10 10:18] LABS: BASOPHILS 0.2 % (0-2); EOSINOPHILS 2.5 % (0-7); HEMATOCRIT 35.3 % (42.0-54.0); HEMOGLOBIN 11.2 g/dL (13.5-17.5); IMMATURE GRANULOCYTES 0.1 % (0-5); LYMPHOCYTES 20.1 % (15-50); MCH 31.5 pg (26.0-34.0); MCHC 31.7 g/dL (31.0-37.0); MCV 99.2 fL (80.0-100.0); MEAN PLATELET VOLUME 9.5 fL (7.4-10.4); MONOCYTES 6.9 % (2-11); NEUTROPHILS 70.2 % (40-80); PLATELET COUNT 160 10x3/uL (130-400); RBC 3.56 10x6/uL (4.20-6.10); RDW 15.7 % (11.5-14.5); WBC 8.2 10x3/uL (4.8-10.8)
[2017-03-10 10:38] LABS: CALCIUM 9.4 mg/dL (8.5-10.1); CARBON DIOXIDE 28.8 mmol/L (21.0-32.0); CREATININE - SERUM 4.9 mg/dL (0.6-1.3); POTASSIUM - SERUM 3.8 mmol/L (3.5-5.1)
--- NOTE | 2017-03-10 13:52 | NUR ---
RECIEVED TO ROOM VIA STRETCHER FROM CUT LACE MACHINE OPERATOR WITH 7 FR EXOSEAL R/GROIN CDI NO BLEEDING NO HEMATOMA NOTED. INSTRUCTED PATIENT TO KEEP HEAD FLAT ON PILLOW WITH RLE STRAIGHT
--- NOTE | 2017-03-10 13:58 | NUR ---
SB RATE 54 BP 133/61 CHEST PAIN DENIED. 7 FR EXOSEAL R/GROIN CDI NO BLEEDING NO HEMATOMA NOTED.
--- NOTE | 2017-03-10 14:27 | NUR ---
RESTING QUIETLY NO DISTRESS NOTED. R/GROIN CDI NO BLEEDING NOTED
--- NOTE | 2017-03-10 14:48 | NUR ---
NO CHANGE IN ASSESSMENT CONTINUES TO SLEEP WITH NO DISTRESS NOTED
--- NOTE | 2017-03-10 14:58 | NUR ---
RESTING QUIETLY WITH AT BEDSIDE SB RATE 49 BP 104/46 R/GROIN CDI NO BLEEDING NO HEMATOMA NOTED
--- NOTE | 2017-03-10 15:19 | NUR ---
NO CHANGE IN ASSESSMENT CONTINUES TO SLEEP
--- NOTE | 2017-03-10 15:32 | NUR ---
SANDWICH AND JUICE TO BEDSIDE R/GROIN CDI NO BLEEDING NOTED
--- NOTE | 2017-03-10 15:43 | NUR ---
VERBAL AND WRITTEN DISCHARGE GONE OVER WITH PATIENT AND FAMILY BOTH VERBALIZED UNDERSTANDING. PATIENT QUESTIONS DR HANSON STOPPING COUMADIN AND PUTTING HIM ON PLAVIX. ASK HOW LONG DO I STAY OFF THE COUMADIN. CALLED TELEGRAPH OFFICE MANAGER WITH ORDERS FROM DR HANSON TO STAY OFF COUMADIN UNTIL SEEN IN THE OFFICE WITH TERRI. FOLLOW UP APPOINTMENT 04/11/17 AT 2:20
--- NOTE | 2017-03-10 16:43 | NUR ---
R/GROIN CDI NO BLEEDING NOTED. VSS WITH CHEST PAIN DENIED
--- NOTE | 2017-03-10 16:59 | NUR ---
7 FR EXOSEAL R/GROIN CDI NO BLEEDING NO HEMATOMA NOTED. REPOSITIONED TO SITTING WITH HOB UP 30 DEGREES. PIV REMOVED WITH DRESSING APPLIED. CHEST PAIN IS DENIED. PATIENT UP TO GET DRESSED FOR DISCHARGE HOME
--- NOTE | 2017-03-10 17:02 | NUR ---
PATIENT TRANSPORTED VIA WC TO PARKING FOR TO DRIVE HOME NO DISTRESS NOTED AND CHEST PAIN IS DENIED. R/GROIN CDI
--- NOTE | 2017-03-24 16:56 | HP ---
PATIENT: TASHA DE LA CRUZ MEDICAL RECORD: [id number] ACCOUNT: [id number] LOCATION:CHERYL : 36 ADMISSION DATE: 03/10/17 HISTORY AND PHYSICAL EXAMINATION DIAGNOSES: 1. Angina. 2. Cardiomyopathy. 3. Coronary artery disease. 4. End-stage renal failure. 5. Hypertension. HISTORY OF PRESENT ILLNESS: This is a gentleman who presents with unstable anginal symptomatology, found to have 3-vessel coronary artery disease, underwent successful PTCA stent of the LAD and circumflex last week. He has severe disease of the RCA that is amenable to Diamondback rotational atherectomy now brought back for rotational atherectomy, PTCA stent of the RCA. PHYSICAL EXAMINATION: GENERAL APPEARANCE: Well-nourished, well-developed, appears stated age. Level of distress, comfortable. PSYCHIATRIC: Mental status, alert, normal affect. Orientation, oriented to time, place and person. EYES: Lids and conjunctiva, noninjected. No discharge, no pallor. ENT: Lips, teeth, gums, normal dentition. Oropharynx, no cyanosis, no pallor. NECK: Carotid arteries, bilateral normal upstroke, no bruits, no thrills. JUGULAR VEINS: No jugular venous pressure or distention. CERVICAL LYMPH NODES: Nontender, nonenlarged. THYROID: Not enlarged. Nontender. No nodules. LUNGS: Respiratory effort, unlabored. CHEST: Normal curvature. No thoracic deformity. No chest wall tenderness. Percussion, resonant. Auscultation, clear. No wheezes, no rales, no rhonchi. CARDIOVASCULAR: Precordial exam, nondisplaced. No heaves or pericardial thrills. Rate and rhythm, regular. Heart sounds, normal S1, normal S2. No S3, no gallop, no rub. Systolic murmur, not heard. Diastolic murmur, not heard. EXTREMITIES: No cyanosis, no edema. Peripheral pulses, full and equal in all extremities, except as noted. No bruits appreciated. ABDOMEN: Soft, nondistended. Normal aorta. No bruit. Nontender. No masses. Liver, nontender, no hepatomegaly. Spleen, nontender, no splenomegaly. MUSCULOSKELETAL: No joint tenderness. No joint swelling. No erythema. NEUROLOGICAL: Normal gait, normal strength, normal tone. SKIN: Warm and dry. REVIEW OF SYSTEMS: The patient reports easy bruising but reports no swollen glands. The patient reports no fever, no night sweats, no significant weight gain, no significant weight loss. No significant exercise tolerance. The patient reports no dry eyes, no irritation, no vision change. Patient reports no difficulty hearing and no ear pain. Patient reports no frequent nose bleeds or nose and sinus problems. Patient reports on arm pain on exertion. No shortness of breath while lying down. No history of heart murmur. Patient reports no cough, no wheezing or coughing up blood. Patient reports no abdominal pain, no vomiting. Normal appetite. No diarrhea and not vomiting blood. No nausea and no constipation. Patient reports no incontinence. No difficulty urinating. No hematuria. No increased frequency. Patient reports no muscle aches. No weakness, no arthralgias, no back pain. No swelling of the HISTORY AND PHYSICAL [id number] TASHA DE LA CRUZ extremities. Patient reports no abnormal mole, no jaundice, no rashes. Reports no loss of consciousness. No weakness and no numbness. No seizures, dizziness, or headaches. The patient reports no depression, no sleep disturbance, feeling safe in a relationship and no alcohol abuse. Patient reports on fatigue. Reports no runny nose or sinus pressure. No itching, no hives, and no frequent sneezing. OVERALL IMPRESSION: Anginal symptomatology with severe calcification and 99% stenosis of the right coronary artery. We will proceed with Diamondback atherectomy of this territory. TRANSINT:[id number] Voice Confirmation ID: [id number] DOCUMENT ID: [id number] CARLOTA HANSNO MD at 1656 CC: [id number] DICTATION DATE: 03/10/1745 PROGRAM SPECIALIST: 03/10/17 1011 DEP CLI 03/10/17 [place] [id number]
--- NOTE | 2017-03-24 16:56 | OP ---
PATIENT NAME: TASHA DE LA CRUZ MEDICAL RECORD: [id number] :36 LOCATION:D.CAT ADMISSION DATE: SURGEON: CARLOTA HANSON MD DATE OF OPERATION: 03/10/2017 PROCEDURES: 1. Diamondback atherectomy to RCA. 2. PTCA stent to RCA. 3. Selective coronary angiography. INDICATION: Angina and coronary artery disease. PROCEDURE IN DETAIL: After informed consent was obtained and after detailed explanation of risks, benefits as well as alternative therapies, the patient elected to proceed with angiogram and angioplasty. The right femoral area was prepped and draped in normal sterile fashion. The right femoral artery was cannulated via modified Seldinger technique with placement of a 7-Montserratian sheath. Right femoral vein was cannulated via modified Seldinger technique with placement of temporary pacemaker, all catheters exchanged through this sheath. FINDINGS: The right coronary is very heavily calcified, has multiple areas of 99% stenosis. We addressed this with a Diamondback atherectomy, multiple passes were made throughout the entirety of the vessel with the atherectomy device. Ballooning was then undertaken with a 1.5 x 3.0 balloon. Stenting was undertaken distal to proximal 2.5 x 18, 3.0 x 38, 3.0 x 22, all [place] stents. Result was 0% residual stenosis. OVERALL IMPRESSION: Successful percutaneous transluminal coronary angioplasty stent of the right coronary artery going from 99% initial stenosis to 0% residual. TRANSINT:[id number] Voice Confirmation ID: [id number] DOCUMENT ID: [id number] CARLOTA HANSON MD at 1656 CC: [id number] DICTATION DATE: 03/10/17 1319 PUGGER HELPER: 03/10/17 1454 DEP CLI 03/10/17 [place] [id number] [place] [id number]
== END | disposition home or self-care (01) ==
LOC: D.CATH 08:57
PROVIDERS: Internal Medicine Interventional Cardiology
DX: I25.119 Atherosclerotic heart disease of native coronary artery with unspecified angina pectoris (principal); I42.9 Cardiomyopathy, unspecified; I12.0 Hypertensive chronic kidney disease with stage 5 chronic kidney disease or end stage renal disease; N18.6 End stage renal disease; Z01.812 Encounter for preprocedural laboratory examination

== ENCOUNTER → 2017-07-07 07:31 | Outpatient (CLI) | payer MEDICARE, OTHER ==
[~2017-07-07] VITALS: Ht 177.8 cm; Wt 59.1 kg
--- NOTE | ~2017-07-07 | HEMODYNAMI ---
PATIENT:TASHA DE LA CRUZ MEDICAL RECORD: [id number] : 36 LOCATION:D[facility] ADMISSION DATE: 07/07/17 Generatedon:07/07/201710:44 Patient name: TASHA DE LA CRUZ Patient #: [id number] SSN: : 1940 Date of study: 07/07/2017 Page: Of Hemodynamic Procedure Report Patient Data Patient Demographics Procedure consent was obtained First Name: TASHA Gender: Male Last Name: DOROTHY : 1940 [facility] Initial: R Age: 76 year(s) Patient #: [id number] Race: Additional ID: [id number] Contact details [address]: [address] [place] [address] State: [place] City: [place] Zip code: [address] Past Medical History Allergies Allergen Reaction Date Comments Reported Other allergy 03/06/2017 HYDROCODONE Other allergy 03/10/2017 Hydrocodone Other allergy 07/07/2017 HYDROCODONE Admission Admission Data Admission Date: 07/07/2017 Admission Time: 7:31 Lab Results Lab Result Date: 07/07/2017 Lab Result Time: 0:00 Biochemistry Name Units Result Min Max BUN mg/dl 46 --(----)-* 7 18 Creatinine mg/dl 6.8 --(----)-* 0.6 1.3 CBC Name Units Result Min Max Hemoglobin g/dl 11.9 *-(----)-- 13.5 17.5 Procedure Procedure Types Cath Procedure Diagnostic Procedure LHC LHC w/Coronaries PCI Procedure PTCA PTCA Initial Miscellaneous Procedures Moderate Sedation up to 15 minutes Procedure Description Procedure Date Procedure Date: 07/07/2017 Procedure Start Time: 10:16 Procedure End Time: 10:44 Procedure Staff Name Function Hudson Kumar MD Performing Physician Giovani French RT Monitor Jessica Bhat RT Scrub Samira Marin RN Nurse Procedure Data Cath Procedure Fluoroscopy Diagnostic fluoroscopy Total fluoroscopy Time: 9.2 time: 9.2 min min Diagnostic fluoroscopy Total fluoroscopy dose: dose: 296.97 mGy 296.97 mGy Contrast Material Contrast Material Type Amount (ml) Isovue 300 75 Entry Location Entry Primary Successful Side Size Upsize Upsize Entry Closure Succes sful Closure Location (Fr) 1 (Fr) 2 (Fr) Remarks Device Remarks Femoral Right 5 Fr 7 Fr 7 Fr Exoseal artery Short Long Estimated blood loss: 10 ml Diagnostic catheters Device Type Used For End Catheter Placement MULTIPACK Pigtail 5 Fr Procedure catheter MULTIPACK JL 4.0 5Fr Procedure catheter Procedure Medications Medication Administration Route Dosage Oxygen NC 2 l/min Lidocaine 2% added to field 20 Heparin Flush Bag added to field 2 bags (1000units/500ml NS) 0.9% NaCl I.V. 100 ml/hr Versed I.V. 1 mg Fentanyl I.V. 50 mcg Heparin Bolus I.V. 4000 units Versed I.V. 1 mg Fentanyl I.V. 50 mcg 0.9% NaCl I.V. bolus 250 ml Hemodynamics Rest HGB: 11.9 (g/dl) Heart Rate: 55 (bpm) Pressure Samples Time Site Value (mmHg) Purpose Heart Use Rate(bpm) 10:18 LV 60/19,22 Snapshot 55 Snapshots Pre Cath Intra NCS Post Cath Vital Signs Time Heart Resp SPO2 etCO2 NIBP (mmHg) Rhythm Pain Sedation Rate (ipm) (%) (mmHg) Status Level (bpm) 10:00:28 64 14 100 0 143/69(85) NSR 0 (11) 10(A) , No pain 10:04:51 59 15 100 15.8 134/63(105) NSR 0 (11) 10(A) , No pain 10:09:09 55 15 100 18.8 106/51(84) NSR 0 (11) 10(A) , No pain 10:14:23 55 12 99 12 95/48(72) NSR 0 (11) 10(A) , No pain 10:17:35 55 16 98 27.1 93/46(71) NSR 0 (11) 10(A) , No pain 10:21:47 55 14 98 26.3 86/45(67) NSR 0 (11) 9(A) , No pain 10:25:56 54 16 100 10.5 86/40(73) NSR 0 (11) 9(A) , No pain 10:30:04 53 13 99 0 79/42(58) NSR 0 (11) 10(A) , No pain 10:35:20 53 15 98 0 74/34(51) NSR 0 (11) 9(A) , No pain 10:39:21 53 16 98 31.6 92/47(64) NSR 0 (11) 10(A) , No pain 10:43:29 53 7 98 14.3 92/49(66) NSR 0 (11) 10(A) , No pain Medications Time Medication Route Dose Verified Delivered Reason Notes Effectiveness by by 10:05:48 Oxygen NC 2 Sidney Buffie used for l/min Roe Marin economic development coordinator RN 10:11:45 Lidocaine 2% added 20ml Sidney Hudson for local to vial Roe Kumar MD anesthetic field RN 10:11:51 Heparin Flush added 2 Sidney Hudson used for Bag to bags Roe Kumar MD procedure (1000units/500ml field RN NS) 10:12:01 0.9% NaCl I.V. 100 Sidney Buffie Per physician ml/hr Roe Marin RN RN 10:14:35 Versed I.V. 1 mg Sidney Buffie for sedation Roe Marin RN RN 10:14:41 Fentanyl I.V. 50 Sidney Buffie for sedation mcg Roe Marin RN RN 10:20:30 0.9% NaCl I.V. 250 Sidney Buffie Per physician bolus ml Roe Marin RN RN 10:23:57 Heparin Bolus I.V. 4000 Sidney Buffie for verifi ed units Roe Marin RN anticoagulation with dr MARCIE kumar 10:27:10 Versed I.V. 1 mg Sidney Buffie for sedation Roe Marin RN RN 10:27:13 Fentanyl I.V. 50 Sidney Buffie for sedation mcg Roe Marin RN energy broker Log Time Note 9:46:48 Informed consent obtained and on chart 9:46:53 Diagnostic Cath Status : Elective 9:48:06 Giovani PINEDA(R) (CV) sent for patient. Start room use. 9:53:17 Time tracking: Regular hours 9:53:26 Plan of Care:Hemodynamics will remain stable., Cardiac rhythm will remain stable., Comfort level will be maintained., Respiratory function will remain adequate., Patient/ family verbilizes understanding of procedure., Procedure tolerated without complication., Recovers from procedure without complications.. 9:53:37 Patient received from Pre/Post Procedure Room to CCL 3 Alert and oriented. Tansferred to table in Supine position. 9:53:38 Warm blankets applied, and kelli hugger turned on for patient comfort. 9:53:38 Correct patient and procedure confirmed by team. 9:53:39 ECG and BP/O2 sat monitors applied to patient. 9:53:41 Full Disclosure recording started 9:59:15 Vital chart was started 10:04:14 Rhythm: 1st degree heart block 10:05:29 H&P Date Dictated: 07/06/2017 Within 30 days and on chart., H&P Addendum completed by physician on day of procedure. (MUST COMPLETE FOR ALL OUTPATIENTS). 10:05:32 Pre-procedure instructions explained to patient. 10:05:32 Pre-op teaching completed and patient verbalized understanding. 10:05:34 Family in waiting room. 10:05:37 Patient NPO since Midnight. 10:05:48 Oxygen 2 l/min NC was administered by Samira Marin RN; used for procedure; 10:06:21 Patient allergic to Other allergyHYDROCODONE 10:06:30 Is the patient allergic to Iodine/contrast media? No. 10:06:32 Is patient on blood thinner?Yes 10:06:38 ACC The patient was administered the following blood thiners within the last 24 hours: ACCPlavix 10:06:40 Patient diabetic? No. 10:06:57 PATIENT IS RESERVE LEFT ARM 10:07:01 ----Pre-sedation anethsthesia assessment.---- 10:07:03 Previous problem with sedation/anesthesia? No ? 10:07:05 Snore? Yes 10:07:07 Sleep apnea? No 10:07:14 Deviated septum? No 10:07:15 Opens mouth fully? Yes 10:07:16 Sticks out tongue? Yes 10:07:18 Airway obstruction? No ? 10:07:29 Dentures? Yes REMOVED 10:07:36 Pre procedure: right dorsailis pedis pulse 2+ Normal; easily identifiable; not easily obliterated 10:07:40 Patient pain scale 0/10 ?. 10:07:50 IV patent on arrival in right hand with 0.9% NaCl at [facility]. 10:08: Alarms reviewed by RChristy N. 10:08: Sharps counted by scrub and verified by R.N. 10:08: Physician arrived 10:: Lab Result : Creatinine 6.8 mg/dl :: Lab Result : BUN 46 mg/dl :: Lab Result : Hemoglobin 11.9 g/dl --------ALL STOP TIME OUT------ :: Final Timeout: patient, procedure, and site verified with staff and physician. All members of the team are in agreement. 10:: Right groin site verified by team. 10::47 Physical assessment completed. ASA score P 2 - A patient with mild systemic disease as per Hudson Kumar MD. 10::52 Sedation plan: IV Moderate Sedation Medication:Versed, Fentanyl 10:11:45 Lidocaine 2% 20ml vial added to field was administered by Hudson Kumar MD; for local anesthetic; 10:11:51 Heparin Flush Bag (1000units/500ml NS) 2 bags added to field was administered by Hudson Kumar MD; used for procedure; 10:11:53 Zero performed for pressure channel P1 10:11:57 Zero performed for pressure channel P1 10:11:59 Zero performed for pressure channel P1 10:12:01 0.9% NaCl 100 ml/hr I.V. was administered by Samira Marin RN; Per physician; 10:12:02 Zero performed for pressure channel P1 10:14:35 Versed 1 mg I.V. was administered by Samira Marin RN; for sedation; 10:14:41 Fentanyl 50 mcg I.V. was administered by Samira Marin RN; for sedation; 10:15:21 Use device set Femoral Dx 10:15:23 ACIST Syringe (70297) opened to sterile field. 10:15:23 Bag Decanter (2002) opened to sterile field. 10:15:24 Medline Cath Pack ([id number]) opened to sterile field. 10:15:25 SHEATH 5FR Franklin (PLE890) opened to sterile field. 10:15:26 DIAGNOSTIC WIRE .035 260cm J wire (051154) opened to sterile field. 10:15:27 ACIST Hand Control (14185) opened to sterile field. 10:15:29 ACIST Manifold (87859) opened to sterile field. 10:15:30 DIAGNOSTIC Multipack 5Fr catheter set (BB9059) opened to sterile field. 10:15:32 Tegaderm 4 x 4 (1626W) opened to sterile field. 10:16:37 Procedure started. 10:16:41 Local anesthetic to right femoral artery with Lidocaine 2% by Hudson Kumar MD.INITIAL ACCESS ONLY 10:17:41 A 5 Fr sheath was inserted into the Right Femoral artery 10:17:52 A MULTIPACK Pigtail 5 Fr catheter was advanced over the wire and used for Procedure. 10:18:08 LV hemodynamics recorded. 10:18:10 LV gram done using ACUÑA 10:18:18 EF : 50 % 10:18:24 Catheter removed. 10:19:18 A MULTIPACK JL 4.0 5Fr catheter was advanced over the wire and used for Procedure. 10:20:30 0.9% NaCl 250 ml I.V. bolus was administered by Samira Marin RN; Per physician; 10:21:15 LCA angiography performed. 10:21:19 Catheter removed. 10:21:39 INFLATOR Merit BasixCompak (JL2372) opened to sterile field. 10:22:22 RCA angiography performed. 10:22:23 Catheter removed. 10:22:24 Proceeding to intervention. 10:22:46 CHOICE PT Extra Support 182cm wire ([id number]) opened to sterile field. 10:23:57 Heparin Bolus 4000 units I.V. was administered by Samira Marin RN; for anticoagulation; verified with dr kumar 10:23:57 GUIDE 7FR AR 1.0 SH catheter ([id number]) opened to sterile field. 10:23:58 SHEATH 7FR Franklin (OZQ284) opened to sterile field. 10:24:11 Sheath upsized to a 7 Fr Short. 10:24:21 7 Fr AR 1 SH guide catheter was inserted over the wire 10:25:53 Catheter removed. unable to cannulate vessel. 10:26:42 SHEATH 7FR ARROW 45cm (IR36888) opened to sterile field. 10:26:55 Sheath upsized to a 7 Fr Long. 10:27:10 Versed 1 mg I.V. was administered by Buffie Marin RN; for sedation; 10:27:13 Fentanyl 50 mcg I.V. was administered by Samira Marin RN; for sedation; 10:27:29 7 Fr HS 1 SH guide catheter was inserted over the wire 10:28:02 CHOICE PT wire advanced. 10:29:52 Inflation number: 1 A NC EUPHORA 3.5 x 15 balloon ([id number]) was prepped and advanced across the Mid RCA, then inflated to 17 FLORECITA for 0:10 (min:sec). 10:30:19 MULTIPLE INFLATIONS 10:31:27 Balloon removed over the wire. 10:35:11 Inflation number: 2 A EUPHORA 3.5 x 20 Balloon ([id number]) was prepped and advanced across the Mid RCA, then inflated to 21 FLORECITA for 0:10 (min:sec). 10:36:00 MULTIPLE INFLATIONS 10:36:18 Balloon removed over the wire. 10:36:18 Wire removed. 10:36:24 Guide catheter removed. 10:36:42 SHEATH 7FR Franklin (UFH612) opened to sterile field. 10:37:30 EXOSEAL 7Fr (EX700) opened to sterile field. 10:38:18 Sheath removed intact; hemostasis achieved with Exoseal to the Right Femoral artery. 10:38:20 Procedure ended.(Physican Out) 10:38:47 Procedure type changed to Cath procedure, Diagnostic procedure, LHC, LHC w/Coronaries, PCI procedure, PTCA, PTCA Initial, Miscellaneous Procedures, Moderate Sedation up to 15 minutes 10:39:03 Fluoroscopy time 09.20 minutes. 10:39:11 Flurop Dose total: 296.97 10:39:11 Fluoroscopy dose: 296.97 mGy 10:39:16 Contrast amount:Isovue 300 75ml. 10:39:19 Sharps counted by scrub and verified by R.N. 10:43:23 Insertion/operative site no bleeding no hematoma. 10:43:27 Post-op/insertion site Right Femoral artery dressed using a 4 x 4 and Tegaderm. 10:43:31 Post right femoral artery:stable 10:43:34 Post Procedure Pulses reassessed and unchanged 10:43:38 Post-procedure physical assessment completed. ASA score P 2 - A patient with mild systemic disease as per Hudson Kumar MD. 10:43:42 Post procedure rhythm: unchanged. 10:43:47 Estimated blood loss: 10 ml 10:43:51 Post procedure instruction explained to patient.Patient verbalizes understanding. 10:43:52 Patient needs reinforcement of post procedure teaching. 10:43:53 Procedure and supply charges have been captured, reviewed, submitted and are correct. 10:44:00 Vital chart was stopped 10:44:00 See physician's report for complete and final results. 10:44:03 Report given to Pre/Post Procedure Room. 10:44:07 Patient transfered to Pre/Post Procedure Room with Stretcher. 10:44:09 Procedure ended. 10:44:09 Full Disclosure recording stopped 10:44:14 End room use (Document Last) Intervention Summary Intervention Notes Time ActionType Lesion and Equipment Action# Pressure Duration Attributes Used 10:29:52 Inflate Mid RCA NC EUPHORA 1 17 00:10 balloon 3.5 x 15 balloon ([id number]) 10:35:11 Inflate Mid RCA EUPHORA 3.5 2 21 00:10 balloon x 20 Balloon ([id number]) Device Usage Item Name Manufacture Quantity Catalog Number Hospital Part Current Mini mal Lot# / Charge Number Stock Stock Serial# Code ACIST Acist 1 13070 255609 498116 139860 20 Syringe Medical (36573) Systems Inc Bag Decanter Microtek 1 2001S 764869 48131 646456 5 (2001S) Medical Inc. Medline Cath Cardinal 1 [id number] 900954 04049 732326 5 Pack Health ([id number]) SHEATH 5FR Terumo 1 HPC916 242125 472776 825805 40 Franklin (RWK312) DIAGNOSTIC St Karl 1 830797 002246 600155 341402 30 WIRE .035 260cm J wire (591649) ACIST Hand Acist 1 71355 660199 865544 487182 5 Control Medical (62197) Systems Inc ACIST Acist 1 71738 478151 422961 196491 5 Manifold Medical (81884) Systems Inc DIAGNOSTIC Cardinal 1 QW7588 263460 48719 803684 30 Multipack Health 5Fr catheter set (TB0787) Tegaderm 4 x 3M 1 1626W 244106 444453 402779 5 4 (1626W) MULTIPACK Cardinal 1 056576 5 Pigtail 5 Fr Health catheter MULTIPACK JL Cardinal 1 454496 5 4.0 5Fr Health catheter INFLATOR Merit 1 QE7987 710376 323306 436205 15 [facility] Medical BasixCompak (OZ0423) CHOICE PT Fleming 1 [id number] 828950 738981 443844 5 Extra Scientific Support 182cm wire ([id number]) GUIDE 7FR AR Medtronic 1 [id number] 197415 138950 580322 0 1.0 SH catheter ([id number]) SHEATH 7FR Terumo 2 EAL940 838097 027278 785950 5 Franklin (AHS989) SHEATH 7FR Teleflex 1 CL-83980 478723 034493 245899 1 ARROW 45cm (RX48376) NC EUPHORA Medtronic 1 [id number] 835592 591905 308440 1 3.5 x 15 balloon ([id number]) EUPHORA 3.5 Medtronic 1 [id number] 485550 613220 981623 5 x 20 Balloon (OLD3845L) EXOSEAL 7Fr Cardinal 1 EX700 719212 342457 309570 5 (EX700) Health Signature Audit [place] Stage Time Signature Unsigned Intra-Procedure 07/07/2017 Giovani French 10:44:36 AM RT(R) (CV) Signatures Monitor : Giovani French RT Signature : Date : Time : [facility] [address] [place] [address]
--- NOTE | ~2017-07-07 | OP ---
PATIENT NAME: TASHA DE LA CRUZ MEDICAL RECORD: [id number] :38 LOCATION:D.CAT ADMISSION DATE: SURGEON: CARLOTA HANSON MD DATE OF OPERATION: 07/07/2017 PROCEDURES: 1. PTCA to RCA. 2. Left heart catheterization. 3. Selective coronary angiography. 4. Left ventriculogram. INDICATION: Angina and coronary artery disease. PROCEDURE IN DETAIL: After informed consent was obtained and after detailed explanation of risks, benefits as well as alternative therapies, the patient elected to proceed with angiogram and angioplasty. The right femoral area was prepped and draped in normal sterile fashion. The right femoral artery was cannulated via modified Seldinger technique with placement of 6-[place] sheath. All catheters exchanged through this sheath. FINDINGS: The left ventriculogram was performed in the standard 30-degree ACUÑA view reveals preserved cardiac wall motion, ejection fraction 50%. SELECTIVE CORONARY ANGIOGRAPHY: 1. Left main showed no significant angiographic disease. 2. Left anterior descending has 90% proximally followed by dezvacbi-qt-mwefbf diffuse disease. 3. Left circumflex has a previously placed stent proximally and is widely patent. There is moderate diffuse disease after this. We could not get any interventional equipment to go past the proximal lesion at the time of last intervention hence this will have to be treated medically. 4. Right coronary artery has a series of multiple previously placed stents with 80% in-stent restenosis in the mid vessel. PTCA OF THE RCA: We used a 3.5 Euphora and 3.5 high-pressure Euphora. Result was 0% residual. IMPRESSION: Successful high pressure percutaneous transluminal coronary angioplasty for in-stent restenosis of the right coronary artery going from 80% initial stenosis to 0% residual. PLAN: For LAD, PTCA stent in the near future. TRANSINT:[id number] Voice Confirmation ID: [id number] DOCUMENT ID: [id number] CARLOTA HANSON MD at 1800 CC: [id number] DICTATION DATE: 07/07/17 1042 DICTAPHONE TYPIST: 07/07/17 1106 [facility] [address] [place] [address]
[2017-07-07 08:55] VITALS: BP 123/52; Ht 177.8 cm; Wt 59.1 kg
[2017-07-07 09:20] LABS: BASOPHILS 0.2 % (0-2); EOSINOPHILS 2.3 % (0-7); HEMATOCRIT 37.4 % (42.0-54.0); HEMOGLOBIN 11.9 g/dL (13.5-17.5); IMMATURE GRANULOCYTES 0.2 % (0-5); LYMPHOCYTES 19.2 % (15-50); MCH 32.2 pg (26.0-34.0); MCHC 31.8 g/dL (31.0-37.0); MCV 101.1 fL (80.0-100.0); MONOCYTES 8.9 % (2-11); NEUTROPHILS 69.2 % (40-80); RDW 15.5 % (11.5-14.5); WBC 8.3 10x3/uL (4.8-10.8)
[2017-07-07 09:32] LABS: PLATELET COUNT 215 10x3/uL (130-400)
[2017-07-07 09:39] LABS: ANION GAP 15.1 mmol/L (8-16); CALCIUM 9.8 mg/dL (8.5-10.1); CREATININE - SERUM 6.8 mg/dL (0.6-1.3); POTASSIUM - SERUM 4.1 mmol/L (3.5-5.1)
== END | disposition home or self-care (01) ==
LOC: D.CATH 07:31
PROVIDERS: Internal Medicine Interventional Cardiology
DX: I25.119 Atherosclerotic heart disease of native coronary artery with unspecified angina pectoris (principal); I48.0 Paroxysmal atrial fibrillation; I10 Essential (primary) hypertension; E78.5 Hyperlipidemia, unspecified; Z01.812 Encounter for preprocedural laboratory examination

== ENCOUNTER 2017-07-12 08:03 | Outpatient (CLI) | payer MEDICARE, OTHER ==
[~2017-07-12] VITALS: Ht 177.8 cm; Wt 56.8 kg
--- NOTE | ~2017-07-12 | OP ---
PATIENT NAME: TASHA DE LA CRUZ MEDICAL RECORD: [id number] :38 LOCATION:D.CAT ADMISSION DATE: SURGEON: CARLOTA HANSON MD DATE OF OPERATION: 07/12/2017 PROCEDURES: 1. PTCA and stent of LAD. 2. Selective coronary angiography. INDICATIONS: Angina and coronary artery disease. PROCEDURE IN DETAIL: After informed consent was obtained and after detailed explanation of risks, benefits as well as alternative therapies, the patient elected to proceed with angiogram and angioplasty. The left femoral area was prepped and draped in normal sterile fashion. Left femoral artery was cannulated via modified Seldinger technique with placement of 6-German sheath. All catheters exchanged through this sheath. FINDINGS: The left anterior descending has 90% stenosis proximally. There is significant disease in the mid vessel, however, it is very calcified, very tortuous. This would not be amenable to stenting. The proximal was stented with a 2.75 x 8-mm Foley stent. Result was 0% residual stenosis. OVERALL IMPRESSION: Successful PTCA and stent of the LAD going from 90% initial stenosis to 0% residual. TRANSINT:[id number] Voice Confirmation ID: [id number] DOCUMENT ID: [id number] CARLOTA HANSON MD CC: [id number] DICTATION DATE: 07/12/17 0953 AQUATIC DIRECTOR: 07/12/17 1032 [facility] [address] [place] [address]
--- NOTE | ~2017-07-12 | HEMODYNAMI ---
PATIENT:TASHA DE LA CRUZ MEDICAL RECORD: [id number] : 36 LOCATION:[facility] ADMISSION DATE: 07/12/17 Generatedon:07/12/20179:54 Patient name: TASHA DE LA CRUZ Patient #: [id number] SSN: : 1940 Date of study: 07/12/2017 Page: Of Hemodynamic Procedure Report Patient Data Patient Demographics Procedure consent was obtained First Name: TASHA Gender: Male Last Name: DOROTHY : 1940 [facility] Initial: R Age: 76 year(s) Patient #: [id number] Race: Additional ID: [id number] Contact details [address]: [address] [place] [address] State: [place] City: [place] Zip code: [address] Past Medical History Allergies Allergen Reaction Date Comments Reported Other allergy 03/06/2017 HYDROCODONE Other allergy 03/10/2017 Hydrocodone Other allergy 07/07/2017 HYDROCODONE Other allergy 07/12/2017 Hydrocodone Admission Admission Data Admission Date: 07/12/2017 Admission Time: 8:03 Lab Results Lab Result Date: 07/07/2017 Lab Result Time: 0:00 Biochemistry Name Units Result Min Max BUN mg/dl 46 --(----)-* 7 18 Creatinine mg/dl 6.8 --(----)-* 0.6 1.3 CBC Name Units Result Min Max Hemoglobin g/dl 11.9 *-(----)-- 13.5 17.5 Procedure Procedure Types Cath Procedure PCI Procedure Coronary Stent Coronary Stent Initial Miscellaneous Procedures Moderate Sedation up to 15 minutes Procedure Description Procedure Date Procedure Date: 07/12/2017 Procedure Start Time: 9:38 Procedure End Time: 9:53 Procedure Staff Name Function Hudson Kumar MD Performing Physician Ramona Groves RT Monitor Elissa Green RT Scrub Katiuska Cassidy RN Nurse Procedure Data Cath Procedure Fluoroscopy Diagnostic fluoroscopy Total fluoroscopy Time: 2.2 time: 2.2 min min Diagnostic fluoroscopy Total fluoroscopy dose: 258 dose: 258 mGy mGy Contrast Material Contrast Material Type Amount (ml) Isovue 300 38 Entry Location Entry Primary Successful Side Size Upsize Upsize Entry Closure Succes sful Closure Location (Fr) 1 (Fr) 2 (Fr) Remarks Device Remarks Femoral Left 6 Fr 6 Fr Exoseal artery Short Long Estimated blood loss: 10 ml Procedure Complications No complications Procedure Medications Medication Administration Route Dosage 0.9% NaCl I.V. 100 ml/hr Oxygen NC 2 l/min Lidocaine 2% added to field 20 Heparin Flush Bag added to field 2 bags (1000units/500ml NS) Fentanyl I.V. 50 mcg Versed I.V. 1 mg Heparin Bolus I.V. 4000 units Fentanyl I.V. 50 mcg Versed I.V. 1 mg Fentanyl I.V. 50 mcg Hemodynamics Rest HGB: 11.9 (g/dl) Heart Rate: 21 (bpm) Snapshots Pre Cath Intra NCS Post Cath Vital Signs Time Heart Resp SPO2 etCO2 NIBP (mmHg) Rhythm Pain Sedation Rate (ipm) (%) (mmHg) Status Level (bpm) 9:26:54 106 14 100 0 125/61(98) NSR 0 (11) 10(A) , No pain 9:31:04 77 14 97 0 138/67(119) NSR 0 (11) 10(A) , No pain 9:35:22 59 14 100 29.3 121/58(96) NSR 0 (11) 10(A) , No pain 9:39:36 58 19 99 9.7 101/49(78) NSR 0 (11) 9(A) , No pain 9:43:45 59 16 98 16.5 88/44(65) NSR 0 (11) 9(A) , No pain 9:47:49 58 18 99 12.8 91/43(73) NSR 0 (11) 10(A) , No pain 9:51:55 57 9 99 0 85/44(67) NSR 0 (11) 10(A) , No pain Medications Time Medication Route Dose Verified Delivered Reason Note s Effectiveness by by 9:28:16 0.9% NaCl I.V. 100ml/hr Hudson Harp used for José Cassidy lead machinist 9:28:27 Oxygen NC 2 l/min Hudson Harp Per physician José Cassidy RN 9:28:33 Lidocaine 2% added 20ml Hudson Hudson for local to vial José Kumar MD anesthetic field 9:28:39 Heparin Flush added 2 bags Hudson Treviño used for Bag to José Kumar MD procedure (1000units/500ml field NS) 9:35:05 Fentanyl I.V. 50 mcg Hudson Katiuska for sedation José Cassidy RN 9:35:15 Versed I.V. 1 mg Hudson Katiuska for sedation José Cassidy RN 9:39:51 Heparin Bolus I.V. 4000 Hudson Katiuska for veri fied units José Cassidy RN anticoagulation by 9:39:56 Fentanyl I.V. 50 mcg Hudson Katiuska for sedation José Cassidy RN 9:40:01 Versed I.V. 1 mg Hudson Katiuska for sedation José Cassidy RN 9:45:10 Fentanyl I.V. 50 mcg Hudson Trianafany for sedation José Cassidy RN Procedure Log Time Note 9:10:03 Informed consent obtained and on chart 9:10:08 Diagnostic Cath Status : Elective 9:10:32 Ramona Groves RT(R) sent for patient. Start room use. 9:10:33 Time tracking: Regular hours 9:10:37 Plan of Care:Hemodynamics will remain stable., Cardiac rhythm will remain stable., Comfort level will be maintained., Respiratory function will remain adequate., Patient/ family verbilizes understanding of procedure., Procedure tolerated without complication., Recovers from procedure without complications.. 9:19:42 Patient received from Pre/Post Procedure Room to CCL 2 Alert and oriented. Tansferred to table in Supine position. 9:19:51 Warm blankets applied, and kelli hugger turned on for patient comfort. 9:19:52 Correct patient and procedure confirmed by team. 9:20:04 H&P Date Dictated: 07/11/2017 Within 30 days and on chart., H&P Addendum completed by physician on day of procedure. (MUST COMPLETE FOR ALL OUTPATIENTS). 9:20:06 Pre-procedure instructions explained to patient. 9:20:09 Family in waiting room. 9:20:11 Patient NPO since Midnight. 9:21:02 ECG and BP/O2 sat monitors applied to patient. 9:25:41 Vital chart was started 9:25:52 Baseline sample Acquired. 9:26:00 Full Disclosure recording started 9:26:18 Patient allergic to Other allergyHydrocodone 9::22 Is the patient allergic to Iodine/contrast media? No. 9::24 Was the patient premedicated? Yes 9:26:26 Is patient on blood thinner?Yes 9::30 ACC The patient was administered the following blood thiners within the last 24 hours: ACCPlavix 9:26:33 Patient diabetic? No. 9::37 Snore? Yes 9::38 Sleep apnea? No 9::43 Dentures? No ? 9::48 Patient pain scale 0/10 ?. 9:26:58 IV patent on arrival in right forearm with 0.9% NaCl at O. 9:28:16 0.9% NaCl 100ml/hr I.V. was administered by Katiuska Cassidy RN; used for procedure; 9::27 Oxygen 2 l/min NC was administered by Katiuska Cassidy RN; Per physician; 9::33 Lidocaine 2% 20ml vial added to field was administered by Hudson Kumar MD; for local anesthetic; 9:28:39 Heparin Flush Bag (1000units/500ml NS) 2 bags added to field was administered by Hudson Kumar MD; used for procedure; 9:28:49 Lab results completed and on chart. 9:28:56 Left groin area was prepped with chlora-prep and draped in sterile fashion 9:28:57 Alarms reviewed by R. N. 9::58 Sharps counted by scrub and verified by R.N. 9:29:01 Physician paged 9:32:27 Physician arrived 9::28 --------ALL STOP TIME OUT------ 9:32:28 Final Timeout: patient, procedure, and site verified with staff and physician. All members of the team are in agreement. 9:32:31 Right groin site verified by team. 9:32:36 Physical assessment completed. ASA score P 2 - A patient with mild systemic disease as per Hudson Kumar MD. 9:32:40 Sedation plan: IV Moderate Sedation Medication:Versed, Fentanyl 9:32:53 Use device set Femoral Dx 9:35:05 Fentanyl 50 mcg I.V. was administered by Katiuska Cassidy RN; for sedation; 9:35:15 Versed 1 mg I.V. was administered by Katiuska Cassidy RN; for sedation; 9:36:59 SHEATH 6FR Destination (RSR01) opened to sterile field. 9:37:01 ACIST Syringe (59478) opened to sterile field. 9:37:02 Bag Decanter (2002S) opened to sterile field. 9:37:02 Medline Cath Pack ([id number]) opened to sterile field. 9:37:13 DIAGNOSTIC WIRE .035 260cm J wire (566169) opened to sterile field. 9:37:16 ACIST Hand Control (52012) opened to sterile field. 9:37:16 ACIST Manifold (81937) opened to sterile field. 9:37:19 Tegaderm 4 x 4 (1626W) opened to sterile field. 9:37:22 PERCUTANEOUS ENTRY 19GA needle opened to sterile field. 9:37:34 INFLATOR Merit BasixCompak (YE0531) opened to sterile field. 9:37:34 SHEATH 6FR Doddridge (HAY560) opened to sterile field. 9:38:14 Procedure started. 9:38:47 Local anesthetic to left femerol artery with Lidocaine 2% by Hudson Kumar MD.INITIAL ACCESS ONLY 9:38:58 Zero performed for pressure channel P1 9:39:08 Zero performed for pressure channel P1 9:39:30 A 6 Fr Short sheath was inserted into the Left Femoral artery 9:39:40 Sheath upsized to a 6 Fr Long. 9:39:51 Heparin Bolus 4000 units I.V. was administered by Katiuska Cassidy RN; for anticoagulation; verified by 9:39:56 Fentanyl 50 mcg I.V. was administered by Katiuska Cassidy RN; for sedation; 9:40:01 Versed 1 mg I.V. was administered by Katiuska Cassidy RN; for sedation; 9:40:39 GUIDE 6FR XBLAD 3.5 catheter ([id number]) opened to sterile field. 9:40:55 Quick combo pads placed on patients chest and back. 9:40:58 6 Fr XBLAD 3.5 guide catheter was inserted over the wire 9:41:17 Guide Catheter removed. unable to cannulate vessel. 9:41:24 GUIDE 6FR XBLAD 4.0 catheter ([id number]) opened to sterile field. 9:41:54 6 Fr XBLAD 4 guide catheter was inserted over the wire 9:45:10 Fentanyl 50 mcg I.V. was administered by Katiuska Cassidy RN; for sedation; 9:46:24 CHOICE PT Extra Support 182cm wire ([id number]) opened to sterile field. 9:47:04 Inflation Number: 1 A JOAQUIN RX 2.75 x 08 stent ([id number]) was prepped and advanced across the Prox LAD. The stent was deployed at 21 FLORECITA for 0:10 (min:sec). 9:47:17 EXOSEAL 6Fr (EX600) opened to sterile field. 9:47:26 Stent catheter was removed intact over wire. 9:47:26 Wire removed. 9:47:46 Quick Combo opened to sterile field. 9:48:25 Sheath removed intact; hemostasis achieved with Exoseal to the Left Femoral artery. 9:49:57 Fluoroscopy time 02.20 minutes. 9:50:03 Flurop Dose total: 258 9:50:03 Fluoroscopy dose: 258 mGy 9:50:08 Contrast amount:Isovue 300 38ml. 9:50:10 Sharps counted by scrub and verified by R.N. 9:50:11 Insertion/operative site no bleeding no hematoma. 9:50:17 Post-op/insertion site Left Femoral artery dressed using a 4 x 4 and Tegaderm. 9:50:19 Post Procedure Pulses reassessed and unchanged 9:50:26 Procedure ended.(Physican Out) 9:50:35 Post-procedure physical assessment completed. ASA score P 2 - A patient with mild systemic disease as per Hudson Kumar MD. 9:50:52 Post procedure rhythm: unchanged. 9:50:56 Estimated blood loss: 10 ml 9:50:58 Post procedure instruction explained to patient.Patient verbalizes understanding. 9:50:59 Patient needs reinforcement of post procedure teaching. 9:51:26 Procedure type changed to Cath procedure, PCI procedure, Coronary Stent, Coronary Stent Initial, Miscellaneous Procedures, Moderate Sedation up to 15 minutes 9:52:23 Procedure and supply charges have been captured, reviewed, submitted and are correct. 9:52:52 Procedure Complication : No complications 9:52:55 Vital chart was stopped 9:52:55 See physician's report for complete and final results. 9:53:02 Report given to Pre/Post Procedure Room. 9:53:05 Patient transfered to Pre/Post Procedure Room with Stretcher. 9:53:07 Procedure ended. 9:53:07 Full Disclosure recording stopped 9:53:10 End room use (Document Last) Intervention Summary Intervention Notes Time ActionType Lesion and Equipment Used Action# Pressure Duration Attributes 9:47:[address] Place stent Prox LAD JOAQUIN RX 2.75 x 1 21 00:10 08 stent ([id number]) Device Usage Item Name Manufacture Quantity Catalog Number Hospital Part Current M inimal Lot# / Charge Number Stock Stock Serial# Code SHEATH 6FR Terumo 1 [id number] [id number] 56668 [id number] 5 Destination (RSR01) ACIST Syringe Acist 1 22309 298446 767043 487566 2 0 (96746) Medical Systems Inc Bag Decanter Microtek 1 2001S 939609 89399 060275 5 (2001S) Medical Inc. Medline Cath Cardinal 1 [id number] 797452 53326 941292 5 Pack Health ([id number]) DIAGNOSTIC St Karl 1 195340 405528 796119 205169 3 0 WIRE .035 260cm J wire (894693) ACIST Hand Acist 1 13992 793138 850091 061127 5 Control Medical (65761) Systems Inc ACIST Manifold Acist 1 02786 021686 327346 606567 5 (52064) Medical Systems Inc Tegaderm 4 x 4 3M 1 1626W 776075 916309 493867 5 (1626W) PERCUTANEOUS Cook Medical 1 I99949 719984 553841 5 ENTRY 19GA needle INFLATOR Merit Merit 1 LT4742 437010 391934 918580 1 5 HealthyMe Mobile Solutions (RF1922) SHEATH 6FR Terumo 1 UQR611 042226 692501 529276 4 0 Doddridge (QLB226) GUIDE 6FR Cardinal 1 [id number] 130174 957898 815985 1 0 XBLAD 3.5 Health catheter (30803707) GUIDE 6FR Cardinal 1 [id number] 007714 001347 204863 3 XBLAD 4.0 Health catheter (10493861) CHOICE PT [place] 1 [id number] 961446 485355 449625 5 Extra Support Scientific 182cm wire ([id number]) JOAQUIN RX 2.75 x Medtronic 1 [id number] 943702 4266703 578846 5 [id number] 08 stent ([id number]) EXOSEAL 6Fr Cardinal 1 EX600 238915 087007 572708 1 0 (EX600) Mobiliz 1 [id number] 977312 382306 343722 5 Signature Audit [place] Stage Time Signature Unsigned Intra-Procedure 07/12/2017 Ramona Groves 9:54:23 AM RT(R) Signatures Monitor : Ramona Groves Signature : RT Date : Time : [id number] [place] [address]
--- NOTE | ~2017-07-12 | HP ---
PATIENT: TASHA PUGH MEDICAL RECORD: [id number] ACCOUNT: [id number] LOCATION:[facility] : 38 ADMISSION DATE: 07/12/17 HISTORY AND PHYSICAL EXAMINATION ADMITTING DIAGNOSES: 1. Angina. 2. Coronary artery disease. 3. Recent percutaneous transluminal coronary angioplasty stent of the right coronary artery with concomitant disease, LAD. 4. Hypertension. 5. Hyperlipidemia. HISTORY OF PRESENT ILLNESS: Mr. Pugh presents with anginal symptomatology, found to have significant disease of the LAD and RCA, underwent successful PTCA stent of the RCA, now brought back for PTCA stent of the LAD. REVIEW OF SYSTEMS: The patient reports easy bruising but reports no swollen glands. The patient reports no fever, no night sweats, no significant weight gain, no significant weight loss. No significant exercise tolerance. The patient reports no dry eyes, no irritation, no vision change. Patient reports no difficulty hearing and no ear pain. Patient reports no frequent nose bleeds or nose and sinus problems. Patient reports on arm pain on exertion. No shortness of breath while lying down. No history of heart murmur. Patient reports no cough, no wheezing or coughing up blood. Patient reports no abdominal pain, no vomiting. Normal appetite. No diarrhea and not vomiting blood. No nausea and no constipation. Patient reports no incontinence. No difficulty urinating. No hematuria. No increased frequency. Patient reports no muscle aches. No weakness, no arthralgias, no back pain. No swelling of the extremities. Patient reports no abnormal mole, no jaundice, no rashes. Reports no loss of consciousness. No weakness and no numbness. No seizures, dizziness, or headaches. The patient reports no depression, no sleep disturbance, feeling safe in a relationship and no alcohol abuse. Patient reports on fatigue. Reports no runny nose or sinus pressure. No itching, no hives, and no frequent sneezing. PHYSICAL EXAMINATION: GENERAL APPEARANCE: Well-nourished, well-developed, appears stated age. Level of distress, comfortable. PSYCHIATRIC: Mental status, alert, normal affect. Orientation, oriented to time, place and person. EYES: Lids and conjunctiva, noninjected. No discharge, no pallor. ENT: Lips, teeth, gums, normal dentition. Oropharynx, no cyanosis, no pallor. NECK: Carotid arteries, bilateral normal upstroke, no bruits, no thrills. JUGULAR VEINS: No jugular venous pressure or distention. CERVICAL LYMPH NODES: Nontender, nonenlarged. THYROID: Not enlarged. Nontender. No nodules. LUNGS: Respiratory effort, unlabored. CHEST: Normal curvature. No thoracic deformity. No chest wall tenderness. Percussion, resonant. Auscultation, clear. No wheezes, no rales, no rhonchi. CARDIOVASCULAR: Precordial exam, nondisplaced. No heaves or pericardial thrills. Rate and rhythm, regular. Heart sounds, normal S1, normal S2. No S3, no gallop, no rub. Systolic murmur, not heard. Diastolic murmur, not heard. EXTREMITIES: No cyanosis, no edema. Peripheral pulses, full and equal in all extremities, except as noted. No bruits appreciated. HISTORY AND PHYSICAL [id number] TASHA PUGH ABDOMEN: Soft, nondistended. Normal aorta. No bruit. Nontender. No masses. Liver, nontender, no hepatomegaly. Spleen, nontender, no splenomegaly. MUSCULOSKELETAL: No joint tenderness. No joint swelling. No erythema. NEUROLOGICAL: Normal gait, normal strength, normal tone. SKIN: Warm and dry. OVERALL IMPRESSION: Anginal symptomatology with significant disease of the left anterior descending. We will proceed with percutaneous transluminal coronary angioplasty stent of the LAD. TRANSINT:[id number] Voice Confirmation ID: [id number] DOCUMENT ID: [id number] CARLOTA HANSON MD CC: [id number] DICTATION DATE: 07/12/17929 SOCIAL STUDIES TEACHER: 07/12/17937 [facility] [address] [place] [address]
[2017-07-12 08:10] VITALS: BP 120/44; Ht 177.8 cm; Wt 56.8 kg
[2017-07-12 08:33] LABS: BASOPHILS 0.2 % (0-2); EOSINOPHILS 2.3 % (0-7); HEMATOCRIT 34.8 % (42.0-54.0); HEMOGLOBIN 10.8 g/dL (13.5-17.5); IMMATURE GRANULOCYTES 0.7 % (0-5); MCH 31.2 pg (26.0-34.0); MCV 100.6 fL (80.0-100.0); MEAN PLATELET VOLUME 9.5 fL (7.4-10.4); MONOCYTES 8.7 % (2-11); NEUTROPHILS 70.1 % (40-80); PLATELET COUNT 278 10x3/uL (130-400); RBC 3.46 10x6/uL (4.20-6.10); RDW 15.7 % (11.5-14.5); WBC 9.2 10x3/uL (4.8-10.8)
[2017-07-12 08:38] LABS: INR 1.14 (0.85-1.17); PROTIME 14.2 SECONDS (11.6-15.0)
[2017-07-12 08:40] LABS: ANION GAP 15.2 mmol/L (8-16); CALCIUM 9.6 mg/dL (8.5-10.1); CARBON DIOXIDE 29.2 mmol/L (21.0-32.0); CREATININE - SERUM 6.5 mg/dL (0.6-1.3); POTASSIUM - SERUM 4.4 mmol/L (3.5-5.1)
== END 2017-07-12 14:00 | disposition home or self-care (01) ==
LOC: D.CATH 08:03
PROVIDERS: Internal Medicine Interventional Cardiology
DX: I25.119 Atherosclerotic heart disease of native coronary artery with unspecified angina pectoris (principal); Z95.5 Presence of coronary angioplasty implant and graft; I10 Essential (primary) hypertension; E78.5 Hyperlipidemia, unspecified; Z01.812 Encounter for preprocedural laboratory examination

== ENCOUNTER → 2019-09-19 09:17 | Outpatient (CLI) | payer MEDICARE, OTHER ==
[2017-07-12 08:10] VITALS: BMI 17.9
== END | disposition home or self-care (01) ==
LOC: D.CT 09:17
PROVIDERS: ATTEND Registered Nurse Nephrology
DX: S81.801A Unspecified open wound, right lower leg, initial encounter (principal)

== ENCOUNTER 2019-09-25 05:42 | Inpatient (IN) | payer MEDICARE, OTHER ==
[~2019-09-25] VITALS: Ht 177.8 cm; Wt 69.6 kg
[2019-09-25] VITALS (15 sets, daily range): BP systolic 101–158; BP diastolic 50–76; BMI 20.1
--- NOTE | ~2019-09-25 | HEMODYNAMI ---
PATIENT:TASHA DE LA CRUZ MEDICAL RECORD: [id number] : 36 LOCATION:[facility] [address] [id number] ADMISSION DATE: 09/25/19 Generatedon:09/26/201912:15 Patient name: TASHA DE LA CRUZ Patient #: [id number] SSN: : 1940 Date of study: 09/26/2019 Page: Of Hemodynamic Procedure Report Patient Data Patient Demographics Procedure consent was obtained First Name: TASHA Gender: Male Last Name: DOROTHY : 1940 Middle Initial: R Age: 78 year(s) Patient #: [id number] Race: Additional ID: [id number] Contact details [address]: [address] [place] [address] State: [place] City: [place] Zip code: [address] Past Medical History Allergies Allergen Reaction Date Comments Reported Other allergy 03/06/2017 HYDROCODONE Other allergy 03/10/2017 Hydrocodone Other allergy 07/07/2017 HYDROCODONE Other allergy 07/12/2017 Hydrocodone Other allergy 09/25/2019 hydrocodone Other allergy 09/26/2019 hydrocodone Admission Admission Data Admission Date: 09/25/2019 Admission Time: 11:36 Room #: [facility] Height (in.): 70 BSA: 1.79 (m2) Height (cm.): 177.8 BMI: 20.09 (kg/m2) Weight (lbs.): 140 Weight (kg.): 63.5 Procedure Procedure Types Cath Procedure Peripheral Cath 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 Peripheral Procedures Abd/Extremity Peripheral vascular Intervention Thrombolysis/Thrombectomy Thrombolysis Catheter Removal Procedure Description Procedure Date Procedure Date: 09/26/2019 Procedure Start Time: 10:33 Procedure Staff Name Function Eileen Saleem RT Time Buyer Servando Aguilar RT Scrub Gualberto Judd MD Performing Physician Isha Salazar RN Nurse Procedure Data Cath Procedure Fluoroscopy Diagnostic fluoroscopy Total fluoroscopy Time: time: 28.2 min 28.2 min Diagnostic fluoroscopy Total fluoroscopy dose: 87 dose: 87 mGy mGy Contrast Material Contrast Material Type Amount (ml) Isovue 300 60 Entry Location Entry Primary Successful Side Size Upsize Upsize Entry Closure Succes sful Closure Location (Fr) 1 (Fr) 2 (Fr) Remarks Device Remarks Femoral Mynx artery Kitchen Stewardess 6Fr/7Fr Procedure Medications Medication Administration Route Dosage Heparin Flush Bag added to field 2 bags (1000units/500ml NS) Lidocaine 1% added to field 20 Versed I.V. 0.5 mg Fentanyl I.V. 25 mcg Heparin Bolus I.V. 4000 units Heparin Bolus I.V. 2000 units Versed I.V. 0.5 mg Fentanyl I.V. 25 mcg Ancef (1Gm/50ml NS) I.V.P.B 1 g Heparin Bolus I.V. 2000 units Hemodynamics Rest BSA: 1.79 (m2) O2 Consumption: Estimated: 197.71 (ml/min) O2 Consumption indexed : Estimated:110.45 (ml/min/m) Heart Rate: 60 (bpm) Snapshots Pre Cath Intra NCS Post Cath Vital Signs Time Heart Resp SPO2 etCO2 NIBP (mmHg) Rhythm Pain Sedation Rate (ipm) (%) (mmHg) Status Level (bpm) 10:11:00 59 19 100 31.6 158/69(134) NSR 0 (11) 10(A) , No pain 10:15:22 58 15 100 30.1 159/69(133) NSR 0 (11) 10(A) , No pain 10:19:43 60 15 100 29.3 159/69(133) NSR 0 (11) 10(A) , No pain 10:24:01 60 16 98 29.3 160/75(135) NSR 0 (11) 10(A) , No pain 10:28:21 61 16 100 28.6 154/71(129) NSR 0 (11) 10(A) , No pain 10:32:39 60 15 100 21.8 160/71(125) NSR 0 (11) 10(A) , No pain 10:36:57 60 16 100 27 149/72(122) NSR 0 (11) 8(A) , No pain 10:41:15 60 11 100 27.8 147/62(108) NSR 0 (11) 8(A) , No pain 10:45:31 60 13 100 25.6 144/65(113) NSR 0 (11) 8(A) , No pain 10:49:47 61 14 100 0 146/68(120) NSR 0 (11) 8(A) , No pain 10:54:01 62 11 100 23.3 142/71(122) NSR 0 (11) 8(A) , No pain 10:58:15 60 13 100 23.3 153/66(124) NSR 0 (11) 8(A) , No pain 11:02:39 60 10 100 24.8 150/68(122) NSR 0 (11) 8(A) , No pain 11:07:00 62 14 100 17.3 147/62(128) NSR 0 (11) 8(A) , No pain 11:11:16 61 15 100 26.3 150/68(115) NSR 0 (11) 8(A) , No pain 11:15:25 61 10 100 27.1 148/66(129) NSR 0 (11) 8(A) , No pain 11:19:42 60 11 99 27.1 151/72(132) NSR 0 (11) 8(A) , No pain 11:24:00 60 13 99 28.6 145/67(113) NSR 0 (11) 8(A) , No pain 11:28:17 62 12 100 0 150/62(117) NSR 0 (11) 8(A) , No pain 11:32:36 60 11 100 25.5 144/66(114) NSR 0 (11) 8(A) , No pain 11:36:47 61 13 99 31.6 147/76(123) NSR 0 (11) 8(A) , No pain 11:41:04 62 14 100 26.3 152/69(125) NSR 0 (11) 8(A) , No pain 11:45:24 63 17 100 25.5 151/66(123) NSR 0 (11) 8(A) , No pain 11:49:42 62 14 99 30.1 148/67(120) NSR 0 (11) 8(A) , No pain 11:54:00 62 21 100 27.8 143/67(119) NSR 0 (11) 8(A) , No pain 11:58:16 62 15 99 25.5 156/67(127) NSR 0 (11) 8(A) , No pain 12:02:34 64 22 100 18.8 149/70(122) NSR 0 (11) 8(A) , No pain 12:06:52 68 15 98 27 156/65(117) NSR 0 (11) 8(A) , No pain 12:11:10 63 12 99 28.6 152/72(126) NSR 0 (11) 8(A) , No pain Medications Time Medication Route Dose Verified Delivered Reason Notes Eff ectiveness by by 10:14:46 Heparin Flush added 2 Gualberto Burciaga used for Bag to bags Dutch Judd procedure (1000units/500ml field MD JOSEPH NS) 10:14:58 Lidocaine 1% added 20ml Gualberto Burciaga for local to vial Dutch Judd anesthetic field MD JOSEPH 10:36:21 Versed I.V. 0.5 Gualberto Vieira for mg Dutch Salazar RN sedation 10:36:32 Fentanyl I.V. 25 Gualberto Vieira for mcg Dutch Salazar RN sedation 10:36:45 Heparin Bolus I.V. 4000 Gualberto Isha Per units Dutch Salazar RN physician 11:06:52 Heparin Bolus I.V. 2000 Gualberto Isha Per units Dutch Salazar RN physician 11:13:16 Versed I.V. 0.5 Gualberto Pennody for mg Dutch Salazar RN sedation 11:13:27 Fentanyl I.V. 25 Gualberto Vieira for mcg Dutch Salazar RN sedation 11:43:59 Ancef (1Gm/50ml I.V.P.B 1 g Gualberto Vieira Per NS) Dutch Salazar RN physician 11:50:16 Heparin Bolus I.V. 2000 Gualberto Isha Per units Dutch Salazar RN physician Procedure Log Time Note 8:53:44 Patient Weight : 140 lbs 8:53:44 Patient Height : 70 inches 10:09:16 Time tracking: Regular hours (M-F 7:00 - 5:00) 10:09:27 Plan of Care:Hemodynamics will remain stable., Cardiac rhythm will remain stable., Comfort level will be maintained., Respiratory function will remain adequate., Patient/ family verbilizes understanding of procedure., Procedure tolerated without complication., Recovers from procedure without complications.. 10:09:46 Vital chart was started 10:09:48 Patient received from ICU to IR Alert and oriented. Tansferred to table in Supine position. 10:09:51 Signed procedure consent form obtained from patient. 10:09:53 ECG and BP/O2 sat monitors applied to patient. 10:09:56 Baseline sample Acquired. 10:09:58 Full Disclosure recording started 10:10:02 - 10:10:08 H&P Date Dictated: 09/26/2019 Within 30 days and on chart.. 10:10:24 Pre-procedure instructions explained to patient. 10:10:25 Pre-op teaching completed and patient verbalized understanding. 10:10:33 Family unavailable. 10:10:36 Patient NPO since Midnight. 10:10:57 Patient allergic to Other allergyhydrocodone 10:11:16 Is the patient allergic to Iodine/contrast media? No. 10:11:20 Is patient on blood thinner?Yes 10:11:22 Patient diabetic? Yes. 10:11:24 If diabetic: On Metformin? No 10:11:26 - 10:11:28 ----Pre-sedation anethsthesia assessment.---- 10:11:40 Previous problem with sedation/anesthesia? No ? 10:11:42 Snore? Yes 10:11:44 Sleep apnea? No 10:11:47 Deviated septum? No 10:11:49 Opens mouth fully? Yes 10:11:51 Sticks out tongue? 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 Yes not in 10:12:15 Pre procedure: right dorsailis pedis pulse Doppler 10:12:18 Pre procedure: left dorsailis pedis pulse Doppler 10:12:22 Pre procedure: right posterior tibial pulse Doppler 10:12:27 Pre procedure: left posterior tibial pulse Doppler 10:12:50 Left groin area was prepped with betadine and draped in sterile fashion 10:13:19 5) <15 or on dialysis Very severe, or end stage kidney failure. 10:13:32 Fire Safety Assessment: C--Open oxygen or nitrous oxide is being used. 10:14:30 - 10:14:35 Use device set IR Diagnostic 10:14:37 Tegaderm 4 x 4 ([id number]) opened to sterile field. 10:14:38 Sterile Angiographic Pack opened to sterile field. 10:14:38 Bag Decanter (2002S) opened to sterile field. 10:14:46 Heparin Flush Bag (1000units/500ml NS) 2 bags added to field was administered by Gualberto Judd MD; used for procedure; Verbal order read back and verified. 10:14:58 Lidocaine 1% 20ml vial added to field was administered by Gualberto pritchett MD; for local anesthetic; Verbal order read back and verified. 10:32:04 - 10:32:09 Physician arrived 10:32:10 --------ALL STOP TIME OUT------ 10:32:11 Final Timeout: patient, procedure, and site verified with staff and physician. All members of the team are in agreement. 10:33:09 Procedure started. 10:33:16 Local anesthetic to left femerol artery with Lidocaine 1% by Gualberto Judd MD.INITIAL ACCESS ONLY 10:36:21 Versed 0.5 mg I.V. was administered by Isha Salazar RN; for sedation; Verbal order read back and verified. 10:36:32 Fentanyl 25 mcg I.V. was administered by Isha Salazar RN; for sedation ; Verbal order read back and verified. 10:36:45 Heparin Bolus 4000 units I.V. was administered by Isha Salazar RN; Per physician; Verbal order read back and verified. 10:37:48 Trailblazer 0.035 135cm catheter ([id number]) opened to sterile field. 10:37:56 ROADRUNNER .035 260 glide wire (M26673) opened to sterile field. 10:40:58 CHOICE PT Extra Support J 300cm guide wire ([id number]) opened to steril e field. 10:45:13 CXI SUPPORT .018 150CM STR catheter (Y09099) opened to sterile field. 10:50:06 INFLATOR BasixTOUCH (SL6301) opened to sterile field. 10:50:30 Inflate balloon Inflation number: 1 A NANOCROSS ELITE 2.5MM-2 MM X 210 X 150 ([id number]) was prepped and advanced across the Undefined1 , then inflated . 10:57:58 COPILOT Valve Control (4224568) opened to sterile field. 10:58:00 CXI SUPPORT .035 135 CM STR catheter (H89115) opened to sterile field. 11:06:52 Heparin Bolus 2000 units I.V. was administered by Isha Salazar RN; Per physician; Verbal order read back and verified. 11:12:27 Inflate balloon Inflation number: 2 A NANOCROSS ELITE 1.6I62F373 ([id number]) was prepped and advanced across the Undefined1 , then inflate . 11:13:16 Versed 0.5 mg I.V. was administered by Isha Salazra RN; for sedation; Verbal order read back and verified. 11:13:27 Fentanyl 25 mcg I.V. was administered by Isha Salazar RN; for sedation ; Verbal order read back and verified. 11:25:05 CHOICE PT Extra Support J 300cm guide wire ([id number]) opened to steril e field. 11:27:28 NITINOL .014 300cm wire ([id number]) opened to sterile field. 11:33:53 Inflate balloon Inflation number: 1 A NANOCROSS ELITE 2.0MM-1.5 MM X 21 0 X 150 ([id number]) was prepped and advanced across the Undefined2 , then inflated. 11:41:11 SHEATH 6FR Hardin (UNN170) opened to sterile field. 11:43:59 Ancef (1Gm/50ml NS) 1 g I.V.P.B was administered by Isha Salazar RN; Per physician; Verbal order read back and verified. 11:50:16 Heparin Bolus 2000 units I.V. was administered by Isha Salazar RN; Per physician; Verbal order read back and verified. 11:55:07 BENTSON 145cm wire ([id number]) opened to sterile field. 11:59:27 A sheath was inserted into the Femoral artery 11:59:27 Sheath removed intact; hemostasis achieved with Mynx Kitchen Stewardess 6Fr/7Fr to th e Femoral artery. 11:59:[address] 6FR/7FR (ZP1332) opened to sterile field. 12:03:55 Procedure ended.(Physican Out) 12:04:07 Fluoroscopy time 28.20 minutes. 12:04:10 Flurop Dose total: 87 12:04:10 Fluoroscopy dose: 87 mGy 12:04:17 Contrast amount:Isovue 300 60ml. 12:04:19 Procedure and supply charges have been captured, reviewed, submitted an d are correct. 12:05:19 Report given to ICU. 12:15:22 Vital chart was stopped Intervention Summary Intervention Notes Time ActionType Lesion and Equipment Used Action# Pressure Duration Attributes 10:50:30 Inflate Undefined1 NANOCROSS ELITE 1 0 00:00 balloon 2.5MM-2 MM X 210 X 150 ([id number]) 11:12:27 Inflate Undefined1 NANOCROSS ELITE 2 0 00:00 balloon [id number] ([id number]) 11:33:53 Inflate Undefined2 NANOCROSS ELITE 1 0 00:00 balloon 2.5MM-2 MM X 210 X 150 ([id number]) Device Usage Item Name Manufacture Quantity Catalog Number Hospital Part Current Minimal Lot# / Charge Number Stock Stock Serial# Code Tegaderm 4 x 4 3M 1 [id number] [id number] [id number] 5 (1626W) Sterile Cardinal 1 [id number] 668317 260820 5 Angiographic Health Pack Bag Decanter Microtek 1 2001S 060100 47894 401894 5 (2001S) Medical Inc[employer] Trailblazer Medtronic 1 [id number]-[id number] 157248 37787 337901 5 0.035 135cm catheter ([id number]) ROADRUNNER .035 [employer] 1 M73382 833259 260586 571147 5 [id number] 260 glide wire (W85628) CHOICE PT Extra [place] 2 [id number] 128931 5 Support J 300cm Scientific guide wire ([id number]) CXI SUPPORT .018 [employer] 1 S45316 923667 991352 841509 5 [id number] 150CM STR catheter (G42881) INFLATOR Merit 1 CL7007 386852 150152 244309 5 BasixTOPixta Medical (EA8464) NANOCROSS ELITE Medtronic 2 [id number] 228732 399749 1 2.5MM-2 MM X 210 X 150 ([id number]) COPILOT Valve Aguillon 1 [id number] 532512 424500 813473 5 Control Vascular (3042399) CXI SUPPORT .035 [employer] 1 B30337 160471 139535 009663 5 [id number] 135 CM STR catheter (W43968) NANOCROSS ELITE Medtronic 1 [id number] 434455 088606 840074 1 [id number] ([id number] NITINOL .014 Medtronic 1 U260212 146427 538091 5 300cm wire ([id number]) SHEATH 6FR Terumo 1 QHB860 272801 195249 250129 40 Hardin (OEI126) BENTSON 145cm [employer] 1 Z88354 701121 643959 5 wire (H88117) MYNX COURT WORKER Access 1 TF2008 845125 991056 5 [id number] 6FR/7FR ([id number]) Closure Signature Audit Kinney Stage Time Signature Unsigned Intra-Procedure 09/26/2019 Eileen Saleem 12:15:17 PM RT(R) [id number] [place] [address]
--- NOTE | ~2019-09-25 | HEMODYNAMI ---
PATIENT:TASHA DE LA CRUZ MEDICAL RECORD: [id number] : 36 LOCATION:[facility] ADMISSION DATE: 09/25/19 Generatedon:09/25/201910:26 Patient name: TASHA DE LA CRUZ Patient #: [id number] SSN: : 1940 Date of study: 09/25/2019 Page: Of Hemodynamic Procedure Report Patient Data Patient Demographics Procedure consent was obtained First Name: TASHA Gender: Male Last Name: DOROTHY : 1940 [facility] Initial: R Age: 78 year(s) Patient #: [id number] Race: Additional ID: [id number] Contact details Address: [address] [place] [address] State: [place] City: [place] Zip code: [address] Past Medical History Allergies Allergen Reaction Date Comments Reported Other allergy 03/06/2017 HYDROCODONE Other allergy 03/10/2017 Hydrocodone Other allergy 07/07/2017 HYDROCODONE Other allergy 07/12/2017 Hydrocodone Other allergy 09/25/2019 hydrocodone Admission Admission Data Admission Date: 09/25/2019 Admission Time: 5:42 Height (in.): 70 BSA: 1.79 (m2) Height (cm.): 177.8 BMI: 20.09 (kg/m2) Weight (lbs.): 140 Weight (kg.): 63.5 Procedure Procedure Types Cath Procedure Peripheral Cath Diagnostic Procedure Celery Stripper Peripheral Procedures Abd/Extremity Extremities Bilat Lower Extremity Procedure Description Procedure Date Procedure Date: 09/25/2019 Procedure Start Time: 9:10 Procedure Staff Name Function Goldy Gandhi MD Performing Physician Eileen Saleem RT Physical Therapy Assistant Isha Salazar RN Nurse Servando Aguilar RT Scrub Procedure Data Cath Procedure Fluoroscopy Diagnostic fluoroscopy Total fluoroscopy Time: time: 10.9 min 10.9 min Diagnostic fluoroscopy Total fluoroscopy dose: 97 dose: 97 mGy mGy Contrast Material Contrast Material Type Amount (ml) Isovue 300 65 Diagnostic catheters Device Type Used For End Catheter Placement Merit ULTRA BOLUS FLUSH 5Fr 65CM catheter ([id number]) Procedure Medications Medication Administration Route Dosage Heparin Flush Bag added to field 3 bags (1000units/500ml NS) Lidocaine 1% added to field 20 Versed I.V. 1 mg Fentanyl I.V. 50 mcg Heparin Bolus 3000 units TPA 1 mg/hr Heparin Drip 500 units/hr (69072dfeat/250 D5W) Hemodynamics Rest BSA: 1.79 (m2) O2 Consumption: Estimated: 200.85 (ml/min) O2 Consumption indexed : Estimated:112.21 (ml/min/m) Heart Rate: 65 (bpm) Snapshots Pre Cath Intra NCS Post Cath Vital Signs Time Heart Resp SPO2 etCO2 NIBP (mmHg) Rhythm Pain Sedation Rate (ipm) (%) (mmHg) Status Level (bpm) 8:49:27 64 19 100 26.1 Measuring NSR 0 (11) 10(A) , No pain 8:49:46 63 17 100 31.4 155/65(114) NSR 0 (11) 10(A) , No pain 8:54:08 62 16 100 23.1 150/64(121) NSR 0 (11) 10(A) , No pain 8:58:28 60 11 100 30.6 144/62(110) NSR 0 (11) 10(A) , No pain 9:02:46 58 15 100 31.4 139/59(106) NSR 0 (11) 10(A) , No pain 9:07:02 59 9 100 29.9 134/62(91) NSR 0 (11) 10(A) , No pain 9:11:16 63 20 100 23.9 141/63(110) NSR 0 (11) 9(A) , No pain 9:15:36 61 13 100 28.4 124/53(95) NSR 0 (11) 8(A) , No pain 9:19:48 65 16 100 29.2 121/55(93) NSR 0 (11) 8(A) , No pain 9:23:58 62 16 100 31.4 129/56(101) NSR 0 (11) 8(A) , No pain 9:28:10 62 16 100 29.1 117/58(93) NSR 0 (11) 8(A) , No pain 9:32:20 62 16 100 29.9 121/54(90) NSR 0 (11) 8(A) , No pain 9:36:32 63 16 100 29.8 120/54(95) NSR 0 (11) 8(A) , No pain 9:40:44 60 14 100 30.6 118/51(89) NSR 0 (11) 8(A) , No pain 9:44:56 61 13 100 34.4 105/49(78) NSR 0 (11) 8(A) , No pain 9:49:04 63 12 100 30.6 103/47(78) NSR 0 (11) 8(A) , No pain 9:53:07 14 100 29.8 107/54(82) NSR 0 (11) 8(A) , No pain 9:57:15 63 15 100 30.6 114/51(88) NSR 0 (11) 8(A) , No pain 10:01:23 63 15 100 29.8 116/56(90) NSR 0 (11) 8(A) , No pain 10:05:31 66 16 100 29.8 119/58(90) NSR 0 (11) 8(A) , No pain 10:09:41 62 13 100 31.3 125/56(95) NSR 0 (11) 8(A) , No pain 10:13:55 63 15 100 30.6 126/53(96) NSR 0 (11) 8(A) , No pain 10:18:07 63 14 100 29.9 123/57(106) NSR 0 (11) 8(A) , No pain 10:22:17 63 15 100 31.4 125/51(102) NSR 0 (11) 8(A) , No pain Medications Time Medication Route Dose Verified Delivered Reason Notes Effectiveness by by 8:48:36 Heparin Flush added 3 bags Goldy Winslow used for Bag to Gandhi Gandhi procedure (1000units/500ml field MD JOSEPH NS) 8:48:49 Lidocaine 1% added 20ml vial Goldy Winslow for local to Gandhi Gandhi anesthetic field MD JOSEPH 9:12:29 Versed I.V. 1 mg Goldy Vieira for Gandhi Martin JACK sedation 9:12:43 Fentanyl I.V. 50 mcg Goldy Vieira for Oksana Salazar RN sedation 9:41:11 Heparin Bolus ia 3000units Goldy Winslow Per Oksana Gandhi physician MD JOSEPH 10:09:51 TPA ia 1mg/hr Goldy Gandhi MD, MD 10:10:14 Heparin Drip I.a. 500 Goldy Winslow (20045qzhpw/250 drip units/hr Oksana Gandhi D5W) MD JOSEPH Procedure Log Time Note 8:34:26 Patient Height : 70 inches 8:34:32 Patient Weight : 140 lbs 8:35:01 Use device set IR Diagnostic 8:35:04 Tegaderm 4 x 4 (1626W) opened to sterile field. 8:35:05 Sterile Angiographic Pack opened to sterile field. 8:35:06 Bag Decanter (2002S) opened to sterile field. 8:35:07 ACIST Manifold (44646) opened to sterile field. 8:35:07 ACIST Hand Control (28306) opened to sterile field. 8:35:11 ACIST Syringe (00651) opened to sterile field. 8:35:45 SHEATH 5FR Eagle (HCZ184) opened to sterile field. 8:35:46 DOC .035 wire (W51064) opened to sterile field. 8:35:47 PERCUTANEOUS ENTRY 19GA needle opened to sterile field. 8:35:48 TUBING Contrast Injection High Pressure (TDP982V) opened to sterile field. 8:35:53 - 8:35:56 Time tracking: Regular hours (M-F 7:00 - 5:00) 8:36:17 Plan of Care:Hemodynamics will remain stable., Cardiac rhythm will remain stable., Comfort level will be maintained., Respiratory function will remain adequate., Patient/ family verbilizes understanding of procedure., Procedure tolerated without complication., Recovers from procedure without complications.. 8:36:26 Patient received from Outpatients to IR Alert and oriented. Tansferred to table in Supine position. 8:36:29 Signed procedure consent form obtained from patient. 8:36:35 H&P Date Dictated: 09/25/2019 Within 30 days and on chart., H&P Addendum completed by physician on day of procedure. (MUST COMPLETE FOR ALL OUTPATIENTS). 8:36:37 Pre-procedure instructions explained to patient. 8:36:38 Pre-op teaching completed and patient verbalized understanding. 8:36:47 Family in patients room. 8:36:49 Patient NPO since Midnight. 8:37:18 Patient allergic to Other allergyhydrocodone 8:37:24 Is the patient allergic to Iodine/contrast media? No. 8:37:29 Is patient on blood thinner?Yes 8:37:34 ACC The patient was administered the following blood thiners within the last 24 hours: ACCPlavix 8:37:39 Patient diabetic? No. 8:37:48 - 8:38:02 ----Pre-sedation anethsthesia assessment.---- 8:38:05 Previous problem with sedation/anesthesia? No ? 8:38:08 Snore? Yes 8:38:10 Sleep apnea? No 8:38:16 Deviated septum? No 8:38:20 Opens mouth fully? Yes 8:38:23 Sticks out tongue? Yes 8:38:28 Airway obstruction? Yes cad 8:38:37 Dentures? Yes taken out 8:47:06 Pre procedure: right dorsailis pedis pulse Doppler 8:47:09 Pre procedure: left dorsailis pedis pulse Doppler 8:47:13 Pre procedure: right posterior tibial pulse Doppler 8:47:17 Pre procedure: left posterior tibial pulse Doppler 8:47:31 Left groin area was prepped with chlora-prep and draped in sterile fashion 8:47:37 ECG and BP/O2 sat monitors applied to patient. 8:47:39 Vital chart was started 8:48:11 Baseline sample Acquired. 8:48:15 Full Disclosure recording started 8:48:16 - 8:48:36 Heparin Flush Bag (1000units/500ml NS) 3 bags added to field was administered by Goldy Gandhi MD; used for procedure; Verbal order read back and verified. 8:48:49 Lidocaine 1% 20ml vial added to field was administered by Goldy Gandhi MD; for local anesthetic; Verbal order read back and verified. 8:49:06 BELL 260 wire (V74532) opened to sterile field. 8:49:10 A Lonestar Heart ULTRA BOLUS FLUSH 5Fr 65CM catheter ([id number]) was advanced over the wire and used for . 8:51:16 5) <15 or on dialysis Very severe, or end stage kidney failure. 8:51:23 Fire Safety Assessment: A--An alcohol-based skin anteseptic being used preoperatively., C--Open oxygen or nitrous oxide is being used. 9:09:40 Physician arrived 9:09:41 --------ALL STOP TIME OUT------ 9:09:42 Final Timeout: patient, procedure, and site verified with staff and physician. All members of the team are in agreement. 9:10:09 Procedure started. 9:10:15 Local anesthetic to left femerol artery with Lidocaine 1% by Goldy Gandhi MD.INITIAL ACCESS ONLY 9:12:15 Arterial access obtained using ultrasound guidance. 9:12:29 Versed 1 mg I.V. was administered by Isha Salazar RN; for sedation; Verbal order read back and verified. 9:12:43 Fentanyl 50 mcg I.V. was administered by Isha Salazar RN; for sedation ; Verbal order read back and verified. 9:22:43 GLIDE WIRE ANGLE 260cm (XY1392) opened to sterile field. 9:22:56 TORQUE DEVICE PLASTIC .038 ( TD01) opened to sterile field. 9:25:21 GLIDE CATHETER 4FR Straight 100cm (CG413) opened to sterile field. 9:29:12 SHEATH 6FR Destination (RSR01) opened to sterile field. 9:39:06 INFLATOR BasixTOUCH (PU3268) opened to sterile field. 9:39:16 CHOICE PT Extra Support J 300cm guide wire ([id number]) opened to steril e field. 9:41:11 Heparin Bolus 3000units ia was administered by Goldy Gandhi MD; Per physician; Verbal order read back and verified. 9:46:16 Inflate balloon Inflation number: 1 A NANOCROSS ELITE 2X 6 X 150 ([id number]( was prepped and advanced across the Undefined1 , then inflated . 9:59:41 Procedure ended.(Physican Out) 10:00:00 Fluoroscopy time 10.90 minutes. 10:00:06 Fluoroscopy dose: 97 mGy 10:00:06 Flurop Dose total: 97 10:04:05 Report given to ICU. 10:04:13 Contrast amount:Isovue 300 65ml. 10:09:51 TPA 1mg/hr ia drip was administered by Goldy Gandhi MD; ; Verbal order read back and verified. 10:10:14 Heparin Drip (84625ixwmd/250 D5W) 500 units/hr I.a. drip was administered by Goldy Gandhi MD; ; Verbal order read back and verified. 10:25:40 Post Procedure Pulses reassessed and unchanged 10:26:05 Vital chart was stopped Intervention Summary Intervention Notes Time ActionType Lesion and Equipment Used Action# Pressure Duration Attributes 9:46:16 Inflate Undefined1 NANOCROSS ELITE 1 0 00:00 balloon 2 X 4 X 150 ([id number]( Device Usage Item Name Manufacture Quantity Catalog Number Hospital Part Current Minimal Lot# / Charge Number Stock Stock Serial# Code Tegaderm 4 x 4 3M 1 [id number] 460771 896924 660988 5 (1626W) Sterile Cardinal 1 [id number] 961746 752561 5 Angiographic Health Pack Bag Decanter Microtek 1 096102 54196 531279 5 () Medical Inc. ACIST Manifold Acist 1 46749 285591 280233 406679 5 (15532) Medical Systems Inc ACIST Hand Acist 1 94918 647440 075996 982525 5 Control (18885) Medical Systems Inc ACIST Syringe Acist 1 37667 131532 993754 563069 20 (70973) Medical Systems Inc SHEATH 5FR Terumo 1 LCO306 806632 937996 529549 5 Eagle (ZFW991) DOC .035 wire Cook Medical 1 Z77178 830104 777429 5 (U81308) PERCUTANEOUS Cook Medical 1 Q91601 986354 250653 5 [id number] ENTRY 19GA needle TUBING Contrast Merit 1 [id number] 480168 972398 749149 5 Injection High Medical Pressure (OXT389F) BELL 260 wire Cook Medical 1 W77389 481176 17691 002841 5 [id number] (Y11759) Merit ULTRA Merit 1 [id number] 324949 667775 5 BOLUS FLUSH 5Fr Medical 65CM catheter ([id number]) GLIDE WIRE ANGLE Terumo 1 QZ1665 562718 170149 919095 5 260cm (NS1138) TORQUE DEVICE Stirling 1 TD01 438185 124090 657600 5 PLASTIC .038 ( Scientific TD01) GLIDE CATHETER Terumo 1 CG413 393204 102194 5 4FR Straight 100cm (CG413) SHEATH 6FR Terumo 1 RSR01 602076 60933 152292 5 Destination (RSR01) INFLATOR Merit 1 UJ3117 152157 035171 455994 5 Happy Inspector (GS7627) CHOICE PT Extra Stirling 1 [id number] 935111 176554 794408 5 Support J 300cm Scientific guide wire (3902819Q5) NANOCROSS ELITE Medtronic 1 [id number] 359477 865064 348077 1 2 X 4 X 150 ([id number]( Signature Audit [place] Stage Time Signature Unsigned Intra-Procedure 09/25/2019 Eileen Saleem 10:26:00 AM RT(R) [facility] [address] [place] [address]
[2019-09-25 06:04] LABS: BASOPHILS 0.3 % (0-2); EOSINOPHILS 2.2 % (0-7); HEMATOCRIT 29.2 % (42.0-54.0); HEMOGLOBIN 8.9 g/dL (13.5-17.5); IMMATURE GRANULOCYTES 0.7 % (0-5); LYMPHOCYTES 21.2 % (15-50); MCH 31.6 pg (26.0-34.0); MCHC 30.5 g/dL (31.0-37.0); MCV 103.5 fL (80.0-100.0); MEAN PLATELET VOLUME 8.9 fL (7.4-10.4); MONOCYTES 6.3 % (2-11); NEUTROPHILS 69.3 % (40-80); PLATELET COUNT 253 10x3/uL (130-400); RBC 2.82 10x6/uL (4.20-6.10); RDW 14.5 % (11.5-14.5); WBC 9.2 10x3/uL (4.8-10.8)
[2019-09-25 06:23] LABS: ANION GAP 12.6 mmol/L (8-16); CALCIUM 8.8 mg/dL (8.5-10.1); CARBON DIOXIDE 31.2 mmol/L (21.0-32.0); CREATININE - SERUM 4.8 mg/dL (0.6-1.3); POTASSIUM - SERUM 4.8 mmol/L (3.5-5.1)
[2019-09-25] MEDS ORDERED: VIT K (06:46)
[2019-09-25] MEDS ORDERED: PRENAVITE1 TAB PO (06:46)
[2019-09-25] MEDS ORDERED: VITAMIN D5000 UNI3 PO (06:48)
[2019-09-25] MEDS ORDERED: COLACE50 MG/5 ML PO (06:53)
[2019-09-25] MEDS ORDERED: SANTYL30 GM TP (07:15)
[2019-09-25 07:23] LABS: APTT 32.3 SECONDS (22.8-39.4); INR 1.19 (0.85-1.17)
--- NOTE | 2019-09-25 11:07 | NUR ---
PT ARRIVED ON UNIT VIA BED, HOOKED TO MONITORS, ALERT AND ORIENTED, SHEATH TO LEFT GROIN, NO HEMETOMA OR BLEEDING NOTED,
[2019-09-25 13:18] LABS: BASOPHILS 0.2 % (0-2); EOSINOPHILS 1.8 % (0-7); HEMATOCRIT 30.4 % (42.0-54.0); HEMOGLOBIN 9.5 g/dL (13.5-17.5); IMMATURE GRANULOCYTES 0.7 % (0-5); LYMPHOCYTES 22.1 % (15-50); MCH 32.2 pg (26.0-34.0); MCHC 31.3 g/dL (31.0-37.0); MCV 103.1 fL (80.0-100.0); MONOCYTES 6.4 % (2-11); NEUTROPHILS 68.8 % (40-80); PLATELET COUNT 242 10x3/uL (130-400); RBC 2.95 10x6/uL (4.20-6.10); RDW 14.2 % (11.5-14.5); WBC 8.4 10x3/uL (4.8-10.8)
[2019-09-25 13:41] LABS: INR 1.24 (0.85-1.17); PROTIME 15.5 SECONDS (11.6-15.0)
[2019-09-25 13:59] LABS: APTT 53.5 SECONDS (22.8-39.4)
[2019-09-25 18:27] LABS: BASOPHILS 0.3 % (0-2); HEMATOCRIT 28.7 % (42.0-54.0); HEMOGLOBIN 8.8 g/dL (13.5-17.5); IMMATURE GRANULOCYTES 0.4 % (0-5); MCH 31.8 pg (26.0-34.0); MCHC 30.7 g/dL (31.0-37.0); MCV 103.6 fL (80.0-100.0); MEAN PLATELET VOLUME 9.2 fL (7.4-10.4); MONOCYTES 6.1 % (2-11); NEUTROPHILS 74.2 % (40-80); PLATELET COUNT 241 10x3/uL (130-400); RBC 2.77 10x6/uL (4.20-6.10); RDW 14.3 % (11.5-14.5); WBC 9.1 10x3/uL (4.8-10.8)
[2019-09-25 18:50] LABS: INR 1.19 (0.85-1.17)
[2019-09-25 18:51] LABS: APTT 38.9 SECONDS (22.8-39.4)
--- NOTE | 2019-09-25 19:00 | NUR ---
SHIFT ASSESSMENT COMPLETED. PT CARE ASSUMED. MONITORS ON AND WORKING, VITALS STABLE, SHEATH NOTED TO LEFT GROIN. PULSES PALPABLE BILAT LOWER EXT. PT AWAKE AND ALERT, CALL LIGHT WITHIN REACH, WILL CONTINUE TO OBSERVE.
--- NOTE | 2019-09-25 23:00 | NUR ---
PT LYING IN BED RESTING. MONITORS ON AND WORKING, VITALS STABLE, PEDAL PULSES PALP BILAT. PT C/O BACK PAIN AND REQUESTED HOME PAIN MED TYLENOL 3. PAGED DR CASTANON AND REC'D ORDERS FOR TYLENOL # 3 EVERY 4 HOURS PRN FOR DISCOMFORT. MONITORS ON AND WORKING. PTS CALLED, CONFIRMED [facility] AND WAS GIVEN AN UPDATE, THEN TRANSFERRED INTO PTS TELEPHONE. CALL LIGHT WITHIN REACH, WILL CONTINUE TO OBSERVE.
[2019-09-25 23:38] LABS: HEMATOCRIT 27.4 % (42.0-54.0); HEMOGLOBIN 8.7 g/dL (13.5-17.5); LYMPHOCYTES 20.2 % (15-50); MCHC 31.8 g/dL (31.0-37.0); MEAN PLATELET VOLUME 8.3 fL (7.4-10.4); NEUTROPHILS 73.4 % (40-80); PLATELET COUNT 260 10x3/uL (130-400); RBC 2.72 10x6/uL (4.20-6.10); RDW 13.9 % (11.5-14.5); WBC 8.4 10x3/uL (4.8-10.8)
[2019-09-25 23:39] LABS: MCV 100.7 fL (80.0-100.0)
[2019-09-25 23:56] LABS: APTT 41.6 SECONDS (22.8-39.4); INR 1.21 (0.85-1.17); PROTIME 15.2 SECONDS (11.6-15.0)
[2019-09-26] VITALS (26 sets, daily range): BP systolic 109–165; BP diastolic 49–73; Ht 177.8 cm; Wt 69.6 kg
--- NOTE | 2019-09-26 03:00 | NUR ---
NO CHANGES, PEDAL PULSES PALP BILAT. PT NPO. SEE FLOW SHEET FOR FURTHER DETAILS. WILL CONTINUE TO OBSERVE.
[2019-09-26 03:22] LABS: BASOPHILS 0.4 % (0-2); EOSINOPHILS 2.6 % (0-7); HEMATOCRIT 25.8 % (42.0-54.0); HEMOGLOBIN 8.1 g/dL (13.5-17.5); IMMATURE GRANULOCYTES 0.8 % (0-5); MCHC 31.4 g/dL (31.0-37.0); MONOCYTES 5.4 % (2-11); NEUTROPHILS 70.8 % (40-80); PLATELET COUNT 224 10x3/uL (130-400); RBC 2.53 10x6/uL (4.20-6.10); RDW 14.2 % (11.5-14.5)
[2019-09-26 03:33] LABS: APTT 41.4 SECONDS (22.8-39.4); INR 1.23 (0.85-1.17); PROTIME 15.4 SECONDS (11.6-15.0)
[2019-09-26 03:38] LABS: ALBUMIN 2.3 g/dL (3.4-5.0); ANION GAP 12.4 mmol/L (8-16); BILIRUBIN - TOTAL 0.32 mg/dL (0.2-1.3); CALCIUM 8.6 mg/dL (8.5-10.1); CARBON DIOXIDE 29.1 mmol/L (21.0-32.0); DIGOXIN 1.32 ng/mL (0.90-2.00); MAGNESIUM - SERUM 2.1 mg/dL (1.8-2.4); PHOSPHOROUS 4.7 mg/dL (2.5-4.9); POTASSIUM - SERUM 4.5 mmol/L (3.5-5.1); PROTEIN - SERUM 5.6 g/dL (6.4-8.2)
[2019-09-26 03:39] LABS: CREATININE - SERUM 6.3 mg/dL (0.6-1.3)
[2019-09-26 07:00] LABS: % SATURATION 45 % (15-55); IRON 50 ug/dl (35-150); TOTAL IRON BIND CAPACITY 110 ug/dl (260-445); UNSAT IRON BIND CAPACITY 60 ug/dl (150-375)
[2019-09-26 12:36] LABS: BASOPHILS 0.4 % (0-2); EOSINOPHILS 2.6 % (0-7); HEMATOCRIT 27.5 % (42.0-54.0); HEMOGLOBIN 8.5 g/dL (13.5-17.5); IMMATURE GRANULOCYTES 0.5 % (0-5); MCH 31.6 pg (26.0-34.0); MCHC 30.9 g/dL (31.0-37.0); MCV 102.2 fL (80.0-100.0); MONOCYTES 6.1 % (2-11); NEUTROPHILS 69.4 % (40-80); PLATELET COUNT 204 10x3/uL (130-400); RBC 2.69 10x6/uL (4.20-6.10); RDW 14.2 % (11.5-14.5); WBC 8.1 10x3/uL (4.8-10.8)
--- NOTE | 2019-09-26 12:41 | NUR ---
1230 RETURNED TO ROOM FROM IR PROCEEDURE NO C/O PAIN INSTRUCDTED TO STAY SUPINE AND NOT TO MOVE LEFT LEG SANDBAG IN PLACE OVER LEFT FEMORAL.
[2019-09-26 13:08] LABS: INR 1.35 (0.85-1.17); PROTIME 16.6 SECONDS (11.6-15.0)
--- NOTE | 2019-09-26 13:08 | NUR ---
1300 SPEAKING WITH HIS ON THE PHONE PT ALERT AWAKE AND TELLING JOKES NO C/O PAIN FREQUENT VITAL SIGNS ONGOING
--- NOTE | 2019-09-26 14:57 | NUR ---
1400 DIALYSIS STARTED RESTING QUIETLY
--- NOTE | 2019-09-26 20:17 | NUR ---
1600 SLEEPING DURING DIALYSIS
--- NOTE | 2019-09-26 20:17 | NUR ---
1748 EATING DINNER APPETITE GOOD
[2019-09-27] VITALS (18 sets, daily range): BP systolic 104–140; BP diastolic 44–83
[2019-09-27 01:47] LABS: BASOPHILS 0.1 % (0-2); EOSINOPHILS 1.2 % (0-7); HEMATOCRIT 26.2 % (42.0-54.0); HEMOGLOBIN 8.1 g/dL (13.5-17.5); IMMATURE GRANULOCYTES 0.4 % (0-5); LYMPHOCYTES 15.1 % (15-50); MCH 31.3 pg (26.0-34.0); MCHC 30.9 g/dL (31.0-37.0); MCV 101.2 fL (80.0-100.0); MEAN PLATELET VOLUME 9.5 fL (7.4-10.4); MONOCYTES 7.5 % (2-11); NEUTROPHILS 75.7 % (40-80); PLATELET COUNT 220 10x3/uL (130-400); RBC 2.59 10x6/uL (4.20-6.10); RDW 14.1 % (11.5-14.5); WBC 7.3 10x3/uL (4.8-10.8)
[2019-09-27 02:15] LABS: ANION GAP 12.9 mmol/L (8-16); BILIRUBIN - TOTAL 0.3 mg/dL (0.2-1.3); CALCIUM 8.4 mg/dL (8.5-10.1); CARBON DIOXIDE 28.3 mmol/L (21.0-32.0); CREATININE - SERUM 5.1 mg/dL (0.6-1.3); DIGOXIN 1.38 ng/mL (0.90-2.00); MAGNESIUM - SERUM 2.1 mg/dL (1.8-2.4); PHOSPHOROUS 4.8 mg/dL (2.5-4.9); POTASSIUM - SERUM 4.2 mmol/L (3.5-5.1); PROTEIN - SERUM 5.4 g/dL (6.4-8.2)
--- NOTE | 2019-09-27 08:59 | NUR ---
Nutrition follow-up: Pt talking to on phone at breakfast; will attempt to visit later. Diet: Renal PO intake 75% of last 2 meals Labs reviewed WT: 140# PO intake good at this time RDN following.
--- NOTE | 2019-09-27 09:54 | NUR ---
0700 AWAKE ALERT REPOSITIONED UP IN BED JESSA LEIVA SERVED APPETITE GOOD ASSESSMENT COMPLETE HEPARIN INFUSING AT 800 UNITS/HR
--- NOTE | 2019-09-27 09:56 | NUR ---
0900 ERIN COLLINS FOR NEPHROLOGY ROUNDING ON PT.
--- NOTE | 2019-09-27 10:30 | NUR ---
0930NOTIFIED DR EID RE HEPARIN GTT INFUSION. HE STATED HE WILL LOOK INTO IT
--- NOTE | 2019-09-27 16:19 | NUR ---
PT ARRIVED TO FLOOR VIA BED. RECEIVING PRBC THROUGH RIGHT FA 20G IV AT 175ML/HR. PLACED PT ON TELE. PT RUNNING 61 SR. PT ALMOST BLIND AND HAS VERY POOR VISION AND NEEDS HELP WITH MEAL TRAYS. PT STATES HE AHS NO FURTHER NEEDS AT THIS TIME. BED LOW. CL IN REACH. MARLENY LCONTINUE TO MONITOR.
--- NOTE | 2019-09-27 17:45 | NUR ---
PRBC DONE INFUSING. NS INFUSING NOW. VS STABLE. WILL CONTINUE TO MONITOR.
[2019-09-28] VITALS: BP 118/69
[2019-09-28 04:49] VITALS: BP 126/59
[2019-09-28 05:12] LABS: BASOPHILS 0.2 % (0-2); EOSINOPHILS 3.1 % (0-7); HEMATOCRIT 27.1 % (42.0-54.0); HEMOGLOBIN 8.5 g/dL (13.5-17.5); IMMATURE GRANULOCYTES 0.3 % (0-5); LYMPHOCYTES 23.2 % (15-50); MCH 30.6 pg (26.0-34.0); MCHC 31.4 g/dL (31.0-37.0); MEAN PLATELET VOLUME 9.3 fL (7.4-10.4); MONOCYTES 7.3 % (2-11); NEUTROPHILS 65.9 % (40-80); PLATELET COUNT 183 10x3/uL (130-400); RBC 2.78 10x6/uL (4.20-6.10); RDW 15.5 % (11.5-14.5); WBC 6.5 10x3/uL (4.8-10.8)
[2019-09-28 05:16] LABS: MCV 97.5 fL (80.0-100.0)
[2019-09-28 05:33] LABS: ANION GAP 14.3 mmol/L (8-16); BILIRUBIN - TOTAL 0.37 mg/dL (0.2-1.3); CALCIUM 8.3 mg/dL (8.5-10.1); CARBON DIOXIDE 28.2 mmol/L (21.0-32.0); MAGNESIUM - SERUM 2.1 mg/dL (1.8-2.4); PHOSPHOROUS 5.5 mg/dL (2.5-4.9); POTASSIUM - SERUM 4.5 mmol/L (3.5-5.1); PROTEIN - SERUM 5.3 g/dL (6.4-8.2)
[2019-09-28 05:34] LABS: CREATININE - SERUM 6.6 mg/dL (0.6-1.3)
[2019-09-28 10:44] VITALS: BP 140/54
--- NOTE | 2019-09-28 13:15 | NUR ---
[facility] CELL: [phone]
--- NOTE | 2019-09-28 13:53 | NUR ---
DISCHARGE PAPERWORK SIGNED, ALL QUESTIONS ANSWERED. IV TO RIGHT WRIST DC'D, TIP INTACT. ESCORTED OUT VIA WHEELCHAIR.
--- NOTE | 2019-09-29 09:58 | MORECARE ---
CASE MANAGEMENT DISCHARGE SUMMARY PATIENT: TASHA DE LA CRUZ UNIT: [id number] ADM DATE: 09/25/19 AGE: 78 : 38 SEX: M ROOM/BED: D.2107 AUTHOR: MAC MCHUGH PHYSICIAN: REFERRING PHYSICIAN: MISTY NEWELL MD DATE OF SERVICE: 09/29/19 Discharge Plan Patient Name: TASHA DE LA CRUZ [facility] [facility] 1940 Planned Disposition: Home Anticipated Discharge Date: Discharge Date: 09/28/2019 Expected LOS: Initial Reviewer: [email or web address] Initial Review Date: 09/25/2019 Generated: 09/29/19 10:57 am DCPIA - Discharge Planning Initial Assessment Updated by [email or web address]: Jeanine Smallwood on 09/29/19 9:56 am * Is the patient Alert and Oriented? Yes * How many steps to enter\exit or inside your home? * PCP DAYNA * Pharmacy [facility] * Preadmission Environment Home with Family * ADLs Partial Dependent * Partial ADLs (Assistance needed) Ambulation Bathing Dressing Eating Medication Management Toileting Transfers * Other Equipment WALKER, W/C * List name and contact numbers for known caregivers / representatives who currently or will assist patient after discharge: MALIK DE LA CRUZ - - [phone] * Verbal permission to speak to the caregivers and representatives has been obtained from the patient. Yes * Community resources currently utilized None * Please name any agencies selected above. HD -TT @[facility] * Additional services required to return to the preadmission environment? No * Can the patient safely return to the preadmission environment? Yes * Has this patient been hospitalized within the prior 30 days at any hospital? No Patient Name: TASHA DE LA CRUZ Page 72263 at 0958 All edits/amendments must be made on the electronic document DICTATION DATE: 09/29/19956 INCISING MACHINE OPERATOR: JESSICA 09/29/19956 RPT#: [id number] DC DATE:09/28/19 STATUS: DIS IN [facility] [address] [place] [address] END OF REPORT
--- NOTE | 2019-09-29 10:04 | MORECARE ---
CASE MANAGEMENT DISCHARGE SUMMARY PATIENT: TASHA DE LA CRUZ UNIT: [id number] ADM DATE: 09/25/19 AGE: 78 : 38 SEX: M ROOM/BED: D.2106 AUTHOR: LOLITA,DOC PHYSICIAN: REFERRING PHYSICIAN: MISTY VELA MD DATE OF SERVICE: 09/29/19 Discharge Plan Patient Name: TASHA DE LA CRUZ Facility: [facility]:[place] : 1940 Planned Disposition: Home Anticipated Discharge Date: Discharge Date: 09/28/2019 Expected LOS: Initial Reviewer: [email or web address] Initial Review Date: 09/25/2019 Generated: 09/29/19 11:04 am Comments DCP- Discharge Planning Updated by [email or web address]: Jeanine Smallwood on 09/29/19 9:[address] LATE ENTRY 09/28/19 Patient Name: TASHA DE LA CRUZ Admission Status: Elective Accout number: [id number] Admission Date: 09-25-2019 : 1940 Admission Diagnosis:PERIPHERAL VASCULAR DISEASE, UNSPECIFIED Attending: Misty Vela Current LOS: 3 Anticipated DC Date: Planned Disposition: Home Primary Insurance: MEDICARE A & B Discharge Planning Comments: CM MET WITH PATIENT AFTER OBTAINING VERBAL CONSENT TO DISCUSS DISCHARGE PLANNING. PATIENT LIVES AT HOME WITH HIS AND PLANS TO RETURN THERE UPON DISCHARGE. PATIENT FEELS THIS IS A SAFE DISCHARGE. PATIENT HAS A WALKER AND WHEELCHAIR IF NEEDED. PATIENT DENIES ANY HOME HEALTH SERVICES. PATIENT HAS HEMO DIALYSIS AT [facility] ON . D/C IMM SIGNED. WILL TRANSPORT HIM HOME. PATIENT DENIES ANY DISCHARGE NEEDS. CM WILL CONTINUE TO FOLLOW AND ASISST NEEDED WITH DISCHARGE PLANNING / NEEDS. Flue Cleaner: Jeanine Smallwood DCPIA - Discharge Planning Initial Assessment Updated by [email or web address]: Jeanine Smallwood on 09/29/19 9:56 am * Is the patient Alert and Oriented? Yes * How many steps to enter\exit or inside your home? * PCP [facility]INTOSH * Pharmacy [facility] * Preadmission Environment Home with Family * ADLs Partial Dependent * Partial ADLs (Assistance needed) Ambulation Bathing Dressing Eating Medication Management Toileting Transfers * Other Equipment WALKER, W/C * List name and contact numbers for known caregivers / representatives who currently or will assist patient after discharge: MALIK DE LA CRUZ - - [phone] * Verbal permission to speak to the caregivers and representatives has been obtained from the patient. Yes * Community resources currently utilized None * Please name any agencies selected above. HD -TTHS @[facility] * Additional services required to return to the preadmission environment? No * Can the patient safely return to the preadmission environment? Yes * Has this patient been hospitalized within the prior 30 days at any hospital? No Coverage Notice Reviewer: [email or web address] Rosa Maria Smallwood Notice Issued Date-Time: 09/28/2019 10:20 Notice Type: IM Discharge Notice Notice Delivered To: Patient Relationship to Patient: Self Water Quality Manager Name: Delivery Method: HAND - Hand Delivered Fiordaliza Days: Prior Verbal Notification: Yes Recipient Understood Notice: Yes Recipient Signature: Med Rec Note Co-signed by Attending: Coverage Notice Comment: Last DP export: 09/29/19 8:57 am Patient Name: TASHA DE LA CRUZ Page 62160 at 1004 All edits/amendments must be made on the electronic document DICTATION DATE: 09/29/19 1004 OIL RIG DRILLER: JESSICA 09/29/19 1004 RPT#: [id number] DC DATE:09/28/19 STATUS: DIS IN [facility] [address] [place] [address] END OF REPORT
--- NOTE | 2019-09-29 18:44 | MORECARE ---
CASE MANAGEMENT DISCHARGE SUMMARY PATIENT: TASHA DE LA CRUZ UNIT: [id number] ADM DATE: 09/25/19 AGE: 78 : 38 SEX: M ROOM/BED: D.2108 AUTHOR: LOLITA,DOC PHYSICIAN: REFERRING PHYSICIAN: MISTY VELA MD DATE OF SERVICE: 09/29/19 Discharge Plan Patient Name: TASHA DE LA CRUZ Facility: [facility]:[place] : 1940 Planned Disposition: Home Anticipated Discharge Date: Discharge Date: 09/28/2019 Expected LOS: Initial Reviewer: [email or web address] Initial Review Date: 09/25/2019 Generated: 09/29/19 7:43 pm Comments DCP- Discharge Planning Updated by [email or web address]: Jeanine Smallwood on 09/29/19 9:[address] LATE ENTRY 09/28/19 Patient Name: TASHA DE LA CRUZ Admission Status: Elective Accout number: [id number] Admission Date: 09-25-2019 : 1940 Admission Diagnosis:PERIPHERAL VASCULAR DISEASE, UNSPECIFIED Attending: Misty Vela Current LOS: 3 Anticipated DC Date: Planned Disposition: Home Primary Insurance: MEDICARE A & B Discharge Planning Comments: CM MET WITH PATIENT AFTER OBTAINING VERBAL CONSENT TO DISCUSS DISCHARGE PLANNING. PATIENT LIVES AT HOME WITH HIS AND PLANS TO RETURN THERE UPON DISCHARGE. PATIENT FEELS THIS IS A SAFE DISCHARGE. PATIENT HAS A WALKER AND WHEELCHAIR IF NEEDED. PATIENT DENIES ANY HOME HEALTH SERVICES. PATIENT HAS HEMO DIALYSIS AT [facility] ON . D/C IMM SIGNED. WILL TRANSPORT HIM HOME. PATIENT DENIES ANY DISCHARGE NEEDS. CM WILL CONTINUE TO FOLLOW AND ASISST NEEDED WITH DISCHARGE PLANNING / NEEDS. Hospital Administrative Assistant: Jeanine Smallwood DCPIA - Discharge Planning Initial Assessment Updated by [id number]: Jeanine Smallwood on 09/29/19 9:56 am * Is the patient Alert and Oriented? Yes * How many steps to enter\exit or inside your home? * PCP [facility] * Pharmacy [facility] * Preadmission Environment Home with Family * ADLs Partial Dependent * Partial ADLs (Assistance needed) Ambulation Bathing Dressing Eating Medication Management Toileting Transfers * Other Equipment WALKER, W/C * List name and contact numbers for known caregivers / representatives who currently or will assist patient after discharge: MALIK DE LA CRUZ - - [phone] * Verbal permission to speak to the caregivers and representatives has been obtained from the patient. Yes * Community resources currently utilized None * Please name any agencies selected above. HD -T[facility]S @[facility] * Additional services required to return to the preadmission environment? No * Can the patient safely return to the preadmission environment? Yes * Has this patient been hospitalized within the prior 30 days at any hospital? No Coverage Notice Reviewer: [email or web address] Rosa Maria Smallwood Notice Issued Date-Time: 09/28/2019 10:20 Notice Type: IM Discharge Notice Notice Delivered To: Patient Relationship to Patient: Self Home Attendant Name: Delivery Method: HAND - Hand Delivered Fiordaliza Days: Prior Verbal Notification: Yes Recipient Understood Notice: Yes Recipient Signature: Med Rec Note Co-signed by Attending: Coverage Notice Comment: Last DP export: 09/29/19 9:04 am Patient Name: TASHA DE LA CRUZ Page 18674 at 1844 All edits/amendments must be made on the electronic document DICTATION DATE: 09/29/191842 ELECTRONIC WARFARE LINGUIST: JESSICA 09/29/191842 RPT#: [id number] DC DATE:09/28/19 STATUS: DIS IN [facility] [address] [place] [address] END OF REPORT
== END 2019-09-28 13:55 | disposition home or self-care (01) | DRG 252 ==
LOC: D.SP 05:42 → D.ICU 05:42 → D.RAD 08:00 → D.SP 08:00 → D.ICU 10:25 → D.SP 11:36 → D.M2 09-27 16:18
PROVIDERS: Family Medicine; Radiology Diagnostic Radiology; Specialist; ADMIT Internal Medicine Nephrology; ATTEND Internal Medicine Nephrology
PROC: 3E05317 Introduction of Other Thrombolytic into Peripheral Artery, Percutaneous Approach (ICD-10-PCS; 2019-09-25)
PROC: 047P3ZZ Dilation of Right Anterior Tibial Artery, Percutaneous Approach (ICD-10-PCS; principal; 2019-09-26 10:00)
DX: E11.51 Type 2 diabetes mellitus with diabetic peripheral angiopathy without gangrene (principal); N18.6 End stage renal disease; I12.0 Hypertensive chronic kidney disease with stage 5 chronic kidney disease or end stage renal disease; I70.235 Atherosclerosis of native arteries of right leg with ulceration of other part of foot; Z99.2 Dependence on renal dialysis; D63.1 Anemia in chronic kidney disease; E83.39 Other disorders of phosphorus metabolism; I48.91 Unspecified atrial fibrillation; I25.10 Atherosclerotic heart disease of native coronary artery without angina pectoris; E11.22 Type 2 diabetes mellitus with diabetic chronic kidney disease; Z86.73 Personal history of transient ischemic attack (TIA), and cerebral infarction without residual deficits; K21.9 Gastro-esophageal reflux disease without esophagitis